=== PATIENT | male | born 1930 | race Caucasian/White ===

== ENCOUNTER 2017-05-15 11:35 | Inpatient (IN) | payer MEDICARE, OTHER ==
[2017-05-15] VITALS (7 sets, daily range): BP systolic 101–130; BP diastolic 49–60; PULSE 75–93; RESP 16–21; TEMP 97.3–98.3; O2SAT 97–99
[~2017-05-15] VITALS: Ht 190.5 cm; Wt 71.5 kg
[~2017-05-15 11:35] MED LIST: AMIT50 PO; APIX5TAB PO; ATOR20TA42 PO; DEMA100T PO; DEXA4TAB PO; KLOR20TA6 PO; LISI-360 PO; METO25CR PO; METO5TAB46 PO; PLAV75TA PO; SENN1TAB11 PO; SLOWTAB PO; TAB-TAB PO; VALT500T PO; VITATAB25 PO
[2017-05-15] MEDS ORDERED: SODIUM CHLORIDE 0.9% FLUSH 10 ML FLUSH IVF PRN (12:00)
--- NOTE | 2017-05-15 12:03 | PD ---
HPI Chief Complaint: Respiratory Distress Time Seen by Provider: 11:41 Travel History International Travel<30 days: No Contact w/Intl Traveler<30days: No Traveled to known affect area: No History of Present Illness HPI 87-year-old male presents to the emergency department via EMS from nursing facility for evaluation of shortness of breath as well as right leg swelling and pain. She states he has had shortness of breath for approximately 3 weeks. He is on torsemide for CHF. He took this this morning and has been urinating since. He states he has had right leg pain and swelling for approximately 2 days. Patient states pain is currently 7/10 to the right leg, nonradiating, aching. Pain is worse with movement. He is currently on Eliquis for atrial fibrillation. Patient denies any fevers or chills. He denies any chest pain. No abdominal pain. No nausea, vomiting, diarrhea. 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 Moderate severity. Patient is on Revlimid for multiple myeloma. PFSH Past Medical History Asthma: Yes Atrial Fibrillation: Yes Cancer: Yes (prostate cancer, MULTIPLE MYELOMA) Cardiac Catheterization: Yes Cardiovascular Problems: Yes High Cholesterol: Yes Chemotherapy: Yes Cerebrovascular Accident: Yes (x 2) Coronary Artery Disease: Yes Diminished Hearing: No Hypertension: Yes Neurologic: Yes Psychiatric: No Respiratory: Yes Radiation Therapy: Yes (2 years ago) Shingles: Yes Past Surgical History Cardiac Surgery: Yes (aortic valve replaced 03/30/13) Coronary Stent: Yes (x2) Eye Surgery: Yes (BILATERAL CATARACT REPAIR) Social History Alcohol Use: Yes (OCCASIONAL) Tobacco Use: No (HX OF) Substance Use: No Allergies-Medications (Allergen,Severity, Reaction): Coded Allergies: levofloxacin (Unverified Allergy, Severe, 12/31/16) chest pain shellfish derived (Unverified Allergy, Severe, Anaphylaxis, 12/31/16) iodine (Unverified Allergy, Unknown, 12/31/16) pt does not know potassium iodide (Unverified Allergy, Unknown, 12/31/16) pt does not know povidone-iodine (Unverified Allergy, Unknown, 12/31/16) pt does not know sodium iodide (Unverified Allergy, Unknown, 12/31/16) pt does not know sodium iodide (Unverified Allergy, Unknown, 12/31/16) pt does not know Reported Meds & Prescriptions Reported Meds & Active Scripts Active Reported Plavix (Clopidogrel Bisulfate) Unknown Strength Tab Unknown Dose PO DAILY Slow-Mag (Magnesium Chloride) 64 Mg Tab 2 Tab PO DAILY Metolazone 5 Mg Tab 5 Mg PO DAILY take one daily as needed when weight gain 4 pounds above baseline Jeri-Colace (Senna/Docusate Sodium) 1 Tab Tab 1 Tab PO HS Lisinopril 10 Mg Tab 10 Mg PO DAILY Vitamin D-1000 (Cholecalciferol) 1,000 Unit Tab 1,000 Unit PO DAILY Demadex (Torsemide) 100 Mg Tab 100 Mg PO BID Dexamethasone 4 Mg Tab 40 Mg PO WEEKLY Elavil 50 Mg Tab (Amitriptyline HCl) 50 Mg Tab 50 Mg PO HS Lipitor (Atorvastatin Calcium) 20 Mg Tab 20 Mg PO HS Eliquis (Apixaban) 5 Mg Tab 5 Mg PO BID Multivitamin (Multivitamins) 1 Tab Tab 1 Tab PO DAILY Valtrex (Valacyclovir HCl) 500 Mg Tab 500 Mg PO DAILY K-Dur (Potassium Chloride) 20 Meq Tabcr 40 Meq PO BID on days when you take metolazone is taken take POTASSSIUM TABLETS 2 FOUR TIMES A DAY Metoprolol Succinate Er (Metoprolol Succinate) 25 Mg Tab 25 Mg PO BID Review of Systems Except as stated in HPI: all other systems reviewed are Neg Physical Exam Narrative GENERAL: Well-nourished, well-developed male patient, afebrile. SKIN: Focused skin assessment warm/dry. HEAD: Normocephalic. Atraumatic EYES: No scleral icterus. No injection or drainage. NECK: Supple, trachea midline. No JVD or lymphadenopathy. CARDIOVASCULAR: Regular rate and rhythm without murmurs, gallops, or rubs. Bilateral pedal pulses 1+. Bilateral radial pulses 2+. RESPIRATORY: Breath sounds equal bilaterally. No accessory muscle use. Lungs sounds are clear to auscultation GASTROINTESTINAL: Abdomen soft, non-tender, nondistended. MUSCULOSKELETAL: No cyanosis. Right lower extremity with 2-3+ edema, erythema to the knee with warmth to palpation. BACK: Nontender without obvious deformity. No CVA tenderness. Data Data Last Documented VS Vital Signs Date Time Temp Pulse Resp B/P (MAP) Pulse Ox O2 Delivery O2 Flow Rate FiO2 05/15/17 12:10 98.3 83 19 130/60 (83) 98 Room Air Orders Orders Complete Blood Count With Diff (05/15/17 11:52) Basic Metabolic Panel (Bmp) (05/15/17 11:52) B-Type Natriuretic Peptide (05/15/17 11:52) Act Partial Throm Time (Ptt) (05/15/17 11:52) Prothrombin Time / Inr (Pt) (05/15/17 11:52) Magnesium (Mg) (05/15/17 11:52) Ckmb (Isoenzyme) Profile (05/15/17 11:52) Troponin I (05/15/17 11:52) Urinalysis - C+S If Indicated (05/15/17 11:52) Blood Culture (05/15/17 11:52) Iv Access Insert/Monitor (05/15/17 11:52) Electrocardiogram (05/15/17 11:52) Ecg Monitoring (05/15/17 11:52) Oximetry (05/15/17 11:52) Oxygen Administration (05/15/17 11:52) Chest, Single Ap (05/15/17 11:52) Us Leg Venous Doppler (05/15/17 11:52) Sodium Chloride 0.9% Flush (Ns Flush) (05/15/17 12:00) Lactic Acid Sepsis Protocol (05/15/17 11:52) Vancomycin Inj (Vancomycin Inj) (05/15/17 13:00) Piperacil-Tazo 3.375 Gm Premix (Zosyn 3. (05/15/17 13:00) Admit Order (Ed Use Only) (05/15/17 14:02) Labs Laboratory Tests Test 05/15/17 12:04 White Blood Count 5.7 TH/MM3 Red Blood Count 2.97 MIL/MM3 Hemoglobin 10.1 GM/DL Hematocrit 32.0 % Mean Corpuscular Volume 107.6 FL Mean Corpuscular Hemoglobin 34.1 PG Mean Corpuscular Hemoglobin Concent 31.7 % Red Cell Distribution Width 20.0 % Platelet Count 164 TH/MM3 Mean Platelet Volume 11.6 FL Neutrophils (%) (Auto) 94.4 % Lymphocytes (%) (Auto) 2.6 % Monocytes (%) (Auto) 2.2 % Eosinophils (%) (Auto) 0.7 % Basophils (%) (Auto) 0.1 % Neutrophils # (Auto) 5.4 TH/MM3 Lymphocytes # (Auto) 0.2 TH/MM3 Monocytes # (Auto) 0.1 TH/MM3 Eosinophils # (Auto) 0.0 TH/MM3 Basophils # (Auto) 0.0 TH/MM3 CBC Comment AUTO DIFF Differential Total Cells Counted 100 Neutrophils % (Manual) 76 % Band Neutrophils % 18 % Lymphocytes % 3 % Monocytes % 2 % Neutrophils # (Manual) 5.4 TH/MM3 Metamyelocytes 1 % Differential Comment FINAL DIFF MANUAL Platelet Estimate NORMAL Platelet Morphology Comment NORMAL Ovalocytes 1+ Prothrombin Time 15.4 SEC Prothromb Time International Ratio 1.5 RATIO Activated Partial Thromboplast Time 27.0 SEC Urine Color LIGHT-YELLOW Urine Turbidity CLEAR Urine pH 5.0 Urine Specific [place] 1.005 Urine Protein NEG mg/dL Urine Glucose (UA) NEG mg/dL Urine Ketones NEG mg/dL Urine Occult Blood NEG Urine Nitrite NEG Urine Bilirubin NEG Urine Urobilinogen LESS THAN 2.0 MG/DL Urine Leukocyte Esterase NEG Urine RBC 1 /hpf Urine WBC LESS THAN 1 /hpf Urine Squamous Epithelial Cells <1 /hpf Microscopic Urinalysis Comment CULT NOT INDICATED Blood Urea Nitrogen 37 MG/DL Creatinine 2.00 MG/DL Random Glucose 88 MG/DL Calcium Level 7.9 MG/DL Magnesium Level 2.2 MG/DL Sodium Level 140 MEQ/L Potassium Level 4.0 MEQ/L Chloride Level 105 MEQ/L Carbon Dioxide Level 25.0 MEQ/L Anion Gap 10 MEQ/L Estimat Glomerular Filtration Rate 32 ML/MIN Lactic Acid Level 3.4 mmol/L Total Creatine Kinase 68 U/L Troponin I 1.02 NG/ML B-Type Natriuretic Peptide 1678 PG/ML [facility] Medical Decision Making Medical Screen Exam Complete: Yes Emergency Medical Condition: Yes Medical Record Reviewed: Yes Interpretation(s) Last Impressions Lower Extremity Ultrasound 05/15/17 115 Signed Impressions: Service Date/Time: April 11:59 - CONCLUSION: No evidence of DVT. Fredi Pozo MD Chest X-Ray 05/15/17 1152 Signed Impressions: Service Date/Time: April 12:46 - CONCLUSION: 1. Cardiomegaly without evidence of acute cardiopulmonary process. 2. Prostatic aortic valve. Cortez Watson MD Differential Diagnosis cellulitis versus DVT versus CHF exacerbation versus pneumonia versus COPD versus PE versus sepsis Narrative Course 87-year-old male presents to the emergency department complaining of right leg pain and swelling for 2 days as well as shortness of breath for 3 weeks. EKG, CBC, BMP, BNP, magnesium, CK, troponin, lactic acid, PTT, PT/INR, UA, blood cultures 2 are ordered and pending. Chest x-ray is ordered and pending. Venous Doppler ultrasound of the right lower extremity is ordered and pending. EKG shows atrial fibrillation, heart rate 98 with right bundle branch block. CBC shows hemoglobin 10.1, hematocrit 32.0, band neutrophils 18. BMP shows BUN 37, creatinine 2.0. BNP is 1678. Magnesium is 2.2. CK is 68. Troponin is 1.02. Lactic acid is 3.4. Coags show no acute abnormality. UA is negative. Chest x-ray shows cardiomegaly without evidence of acute cardiopulmonary process , prosthetic aortic valve. US shows no evidence of DVT. Patient is started on vancomycin 1 g IV, Zosyn 3.375 g IV for cellulitis. Hospitalist was paged for admission. Dr. Menjivar accepted admission. Diagnosis Primary Impression: Cellulitis, leg Qualified Codes: L03.115 - Cellulitis of right lower limb Additional Impressions: Elevated troponin Dyspnea Qualified Codes: R06.02 - Shortness of breath Admitting Information Admitting Physician Requests: Admit Jessica Rangel May 15, 2017 12:02
[2017-05-15 12:24] LABS: AUTOMATED NEUTROPHIL # 5.4 TH/MM3 (1.8-7.7); BASOPHIL % 0.1 % (0.0-2.0); EOSINOPHIL % 0.7 % (0.0-4.0); HEMOGLOBIN 10.1 GM/DL (13.0-17.0); LYMPH % 2.6 % (9.0-44.0); LYMPHOCYTE # 0.2 TH/MM3 (1.0-4.8); MEAN CELL VOLUME 107.6 FL (80.0-100.0); MEAN CORPUSCULAR HEMOGLOBIN 34.1 PG (27.0-34.0); MEAN CORPUSCULAR HGB CONC 31.7 % (32.0-36.0); MEAN PLATELET VOLUME 11.6 FL (7.0-11.0); MONO % 2.2 % (0.0-8.0); MONOCYTE # 0.1 TH/MM3 (0-0.9); NEUT % 94.4 % (16.0-70.0); PLATELET COUNT 164 TH/MM3 (150-450); RED BLOOD COUNT 2.97 MIL/MM3 (4.50-5.90); WHITE BLOOD COUNT 5.7 TH/MM3 (4.0-11.0)
[2017-05-15 12:30] LABS: BILIRUBIN, URINE NEG (NEG); BLOOD, URINE NEG (NEG); GLUCOSE,URINE NEG (NEG); KETONE, URINE NEG (NEG); NITRITE,URINE NEG (NEG); SQUAMOUS EPITHELIAL CELL URINE <1 /hpf (0-5); URINE COLOR LIGHT-YELLOW (YELLW/STRAW); URINE LEUKOCYTE ESTERASE NEG (NEG)
[2017-05-15 12:34] LABS: INTERNATIONAL NORMALIZED RATIO 1.5 RATIO; PROTHROMBIN TIME - PATIENT 15.4 SEC (9.8-11.6)
[2017-05-15 12:38] LABS: CALCIUM 7.9 MG/DL (8.5-10.1); MAGNESIUM 2.2 MG/DL (1.5-2.5)
--- NOTE | 2017-05-15 12:39 | RADRPT ---
EXAM DATE/TIME: 05/15/2017 11:59 [facility] COMPARISON: No previous studies available for comparison. INDICATIONS : Right leg swelling. MEDICAL HISTORY : Hypercholesterolemia. Carcinoma, prostate. CVA x2. Coronary artery disease. Afib. HTN. Asthma. M ultiple myeloma. Shingles. SURGICAL HISTORY : Coronary artery stent. Bilateral cataract repair. Aortic valve replacement. Cardiac cath. Chemoth erapy. Radiation therapy. Blood transfusions. ENCOUNTER: Initial ACUITY: 1 day PAIN SCORE: 5/10 LOCATION: Right leg. TECHNIQUE: Venous ultrasound of the leg was performed from the inguinal ligament to the proximal calf. Real-clotilde e, color Doppler and spectral tracing, compression and augmentation techniques were used. FINDINGS: There is normal compressibility of the deep venous system from the inguinal region to the proximal ca lf. No echogenic clot is seen in the lumen of the common femoral, femoral, popliteal, and posterior tibial veins. There is a normal response of the venous system to proximal and distal augmentation an d respiration. CONCLUSION: No evidence of DVT. Fredi Pozo MD on May 15, 2017 at 12:36 Board Certified Radiologist. This report was verified electronically.
[2017-05-15 12:44] LABS: LACTIC ACID SEPSIS PROTOCOL 3.4 mmol/L (0.4-2.0)
[2017-05-15 12:49] LABS: TROPONIN I 1.02 NG/ML (0.02-0.05)
[2017-05-15] MEDS ORDERED: VANCOMYCIN INJ 1,000 MG in SODIUM CHLOR 0.9% 250 ML INJ 250 ML IV ONE (13:00)
[2017-05-15] MEDS ORDERED: PIPERACIL-TAZO 3.375 GM PREMIX 50 ML IV ONE (13:00)
[2017-05-15 13:09] LABS: BANDS 18 % (0-6); LYMPHOCYTES 3 % (9-44); METAMYELOCYTES 1 % (0-1); MONOCYTES 2 % (0-8); NEUTROPHIL # MANUAL DIFF 5.4 TH/MM3 (1.8-7.7); OVALOCYTES 1+ (NORMAL); POLYS (SEG NEUTROPHILS) 76 % (16-70)
--- NOTE | 2017-05-15 13:18 | RADRPT ---
EXAM DATE/TIME: 05/15/2017 12:46 [facility] COMPARISON: No previous studies available for comparison. INDICATIONS : Bilateral lower extremity edema, short of breath, back pain MEDICAL HISTORY : None. SURGICAL HISTORY : None. ENCOUNTER: Initial ACUITY: 3 days PAIN SCORE: Non-responsive. LOCATION: Bilateral chest FINDINGS: The heart is moderately to markedly enlarged. Lungs are free of significant congestion or acute airspace disease. There are no pleural effusions. Prosthetic aortic valve is noted. CONCLUSION: 1. Cardiomegaly without evidence of acute cardiopulmonary process. 2. Prostatic aortic valve. Cortez Watson MD on May 15, 2017 at 13:15 Board Certified Radiologist. This report was verified electronically.
--- NOTE | 2017-05-15 14:17 | PD ---
Physical Exam Narrative GENERAL: Well-nourished, well-developed patient. SKIN: Warm and dry. HEAD: Normocephalic and atraumatic. EYES: No injection or drainage. ENT: No nasal drainage noted. NECK: Supple, trachea midline. CARDIOVASCULAR: Regular rate and rhythm RESPIRATORY: No increased effort. No accessory muscle use. EXTREMITIES: Edema noted to bilateral lower extremities NEUROLOGICAL: Awake. Moves extremities and sensory grossly within normal limits. Clear speech. Data Data Last Documented VS Vital Signs Date Time Temp Pulse Resp B/P (MAP) Pulse Ox O2 Delivery O2 Flow Rate FiO2 05/15/17 12:10 98.3 83 19 130/60 (83) 98 Room Air Orders Orders Complete Blood Count With Diff (05/15/17 11:52) Basic Metabolic Panel (Bmp) (05/15/17 11:52) B-Type Natriuretic Peptide (05/15/17 11:52) Act Partial Throm Time (Ptt) (05/15/17 11:52) Prothrombin Time / Inr (Pt) (05/15/17 11:52) Magnesium (Mg) (05/15/17 11:52) Ckmb (Isoenzyme) Profile (05/15/17 11:52) Troponin I (05/15/17 11:52) Urinalysis - C+S If Indicated (05/15/17 11:52) Blood Culture (05/15/17 11:52) Iv Access Insert/Monitor (05/15/17 11:52) Electrocardiogram (05/15/17 11:52) Ecg Monitoring (05/15/17 11:52) Oximetry (05/15/17 11:52) Oxygen Administration (05/15/17 11:52) Chest, Single Ap (05/15/17 11:52) Us Leg Venous Doppler (05/15/17 11:52) Sodium Chloride 0.9% Flush (Ns Flush) (05/15/17 12:00) Lactic Acid Sepsis Protocol (05/15/17 11:52) Vancomycin Inj (Vancomycin Inj) (05/15/17 13:00) Piperacil-Tazo 3.375 Gm Premix (Zosyn 3. (05/15/17 13:00) Admit Order (Ed Use Only) (05/15/17 14:02) Labs Laboratory Tests Test 05/15/17 12:04 White Blood Count 5.7 TH/MM3 Red Blood Count 2.97 MIL/MM3 Hemoglobin 10.1 GM/DL Hematocrit 32.0 % Mean Corpuscular Volume 107.6 FL Mean Corpuscular Hemoglobin 34.1 PG Mean Corpuscular Hemoglobin Concent 31.7 % Red Cell Distribution Width 20.0 % Platelet Count 164 TH/MM3 Mean Platelet Volume 11.6 FL Neutrophils (%) (Auto) 94.4 % Lymphocytes (%) (Auto) 2.6 % Monocytes (%) (Auto) 2.2 % Eosinophils (%) (Auto) 0.7 % Basophils (%) (Auto) 0.1 % Neutrophils # (Auto) 5.4 TH/MM3 Lymphocytes # (Auto) 0.2 TH/MM3 Monocytes # (Auto) 0.1 TH/MM3 Eosinophils # (Auto) 0.0 TH/MM3 Basophils # (Auto) 0.0 TH/MM3 CBC Comment AUTO DIFF Differential Total Cells Counted 100 Neutrophils % (Manual) 76 % Band Neutrophils % 18 % Lymphocytes % 3 % Monocytes % 2 % Neutrophils # (Manual) 5.4 TH/MM3 Metamyelocytes 1 % Differential Comment FINAL DIFF MANUAL Platelet Estimate NORMAL Platelet Morphology Comment NORMAL Ovalocytes 1+ Prothrombin Time 15.4 SEC Prothromb Time International Ratio 1.5 RATIO Activated Partial Thromboplast Time 27.0 SEC Urine Color LIGHT-YELLOW Urine Turbidity CLEAR Urine pH 5.0 Urine Specific [place] 1.005 Urine Protein NEG mg/dL Urine Glucose (UA) NEG mg/dL Urine Ketones NEG mg/dL Urine Occult Blood NEG Urine Nitrite NEG Urine Bilirubin NEG Urine Urobilinogen LESS THAN 2.0 MG/DL Urine Leukocyte Esterase NEG Urine RBC 1 /hpf Urine WBC LESS THAN 1 /hpf Urine Squamous Epithelial Cells <1 /hpf Microscopic Urinalysis Comment CULT NOT INDICATED Blood Urea Nitrogen 37 MG/DL Creatinine 2.00 MG/DL Random Glucose 88 MG/DL Calcium Level 7.9 MG/DL Magnesium Level 2.2 MG/DL Sodium Level 140 MEQ/L Potassium Level 4.0 MEQ/L Chloride Level 105 MEQ/L Carbon Dioxide Level 25.0 MEQ/L Anion Gap 10 MEQ/L Estimat Glomerular Filtration Rate 32 ML/MIN Lactic Acid Level 3.4 mmol/L Total Creatine Kinase 68 U/L Troponin I 1.02 NG/ML B-Type Natriuretic Peptide 1678 PG/ML MDM Supervised Visit with MARYANNE: Yes Interpretation(s) CBC & BMP Diagram 05/15/17 12:04 Calcium Level 7.9 L, Magnesium Level 2.2 Last 24 hours Impressions Lower Extremity Ultrasound 05/15/17 1152 Signed Impressions: Service Date/Time: April 11:59 - CONCLUSION: No evidence of DVT. Fredi Pozo MD Chest X-Ray 05/15/17 1152 Signed Impressions: Service Date/Time: April 12:46 - CONCLUSION: 1. Cardiomegaly without evidence of acute cardiopulmonary process. 2. Prostatic aortic valve. Cortez Watson MD Narrative Course I, Dr. ramírez, have reviewed the advance practice practitioner's documentation and am in agreement, met with the patient face to face, made the diagnosis, and the medical decision making was done by me. *My assessment and Findings: 87 y/o male presents with pain to his legs and shortness of breath. Workup reveals non-STEMI. Patient also has concurrent cellulitis. Patient was given antibiotic coverage for this. Patient will be admitted to medicine for further care. Diagnosis Primary Impression: Cellulitis, leg Qualified Codes: L03.115 - Cellulitis of right lower limb Additional Impressions: Dyspnea Qualified Codes: R06.02 - Shortness of breath Elevated troponin Admitting Information Admitting Physician Requests: Admit Alice Ramírez MD May 15, 2017 14:17
[2017-05-15] MEDS ORDERED: ACETAMINOPHEN 325 MG TAB PO PRN (14:30)
[2017-05-15] MEDS ORDERED: SENNOSIDES 8.6 MG TAB PO PRN (14:30)
[2017-05-15] MEDS ORDERED: ONDANSETRON HCL 4 MG/2 ML VIAL IVP PRN (14:30)
[2017-05-15] MEDS ORDERED: SODIUM CHLORIDE 0.9% FLUSH 10 ML FLUSH IV FLUSH PRN (14:30)
[2017-05-15] MEDS ORDERED: BISACODYL 10 MG SUPP RECTAL PRN (14:30)
[2017-05-15] MEDS ORDERED: LACTULOSE SYRUP 20 GM/30 ML CUP PO PRN (14:30)
[2017-05-15] MEDS ORDERED: MAGNESIUM HYDROXIDE SUSP 30 ML CUP PO PRN (14:30)
[2017-05-15] MEDS ORDERED: NALOXONE HCL 0.4 MG/ML AMP IV PUSH PRN (14:30)
--- NOTE | 2017-05-15 14:35 | HHI.HP ---
[facility] Shawn Linares MD Admission Diagnosis right leg cellulitis, elevated troponin, dyspnea Diagnoses: Chief Complaint: Shortness of breathing, lower extremity edema and pain Travel History International Travel<30 Days: No Contact w/Intl Traveler <30 Da: No Traveled to Known Affected Are: No History of Present Illness This is an 87-year-old male past medical history of bovine aortic valve replacement, atrial fibrillation on chronic anticoagulation, coronary artery disease status post stent placement and multiple myeloma who presented with shortness of breathing and lower extremity pain. Patient is a poor historian he stated that his shortness of breathing has been for many years but has worsened the past 3 weeks. He stated that it intermittently gets better and could not really tell me if today was a bad day. Denied any chest pain, palpitation, lightheadedness or dizziness. He also stated that he has lower extremity edema this been present for a few weeks. Patient stated that he fell in the senior living in which he started to have back pain and lower extremity pain. Pain is constant and worse with movement. Patient is asking for pain medication. He denies any lower extremity weakness or fecal urinary continence. Patient remains afebrile. Patient stated that he sees Dr. Boris Lopez. All other review system reviewed and negative. Past Family Social History Past Medical History Bovine aortic valve replacement Hypertension Coronary disease History CVA H fibrillation Chronic anticoagulation History of CHF Multiple myeloma Past Surgical History History air valve replacement Stent placement Reported Medications Reported Meds & Active Scripts Active Reported Plavix (Clopidogrel Bisulfate) Unknown Strength Tab Unknown Dose PO DAILY Slow-Mag (Magnesium Chloride) 64 Mg Tab 2 Tab PO DAILY Metolazone 5 Mg Tab 5 Mg PO DAILY take one daily as needed when weight gain 4 pounds above baseline Jeri-Colace (Senna/Docusate Sodium) 1 Tab Tab 1 Tab PO HS Lisinopril 10 Mg Tab 10 Mg PO DAILY Vitamin D-1000 (Cholecalciferol) 1,000 Unit Tab 1,000 Unit PO DAILY Demadex (Torsemide) 100 Mg Tab 100 Mg PO BID Dexamethasone 4 Mg Tab 40 Mg PO WEEKLY Elavil 50 Mg Tab (Amitriptyline HCl) 50 Mg Tab 50 Mg PO HS Lipitor (Atorvastatin Calcium) 20 Mg Tab 20 Mg PO HS Eliquis (Apixaban) 5 Mg Tab 5 Mg PO BID Multivitamin (Multivitamins) 1 Tab Tab 1 Tab PO DAILY Valtrex (Valacyclovir HCl) 500 Mg Tab 500 Mg PO DAILY K-Dur (Potassium Chloride) 20 Meq Tabcr 40 Meq PO BID on days when you take metolazone is taken take POTASSSIUM TABLETS 2 FOUR TIMES A DAY Metoprolol Succinate Er (Metoprolol Succinate) 25 Mg Tab 25 Mg PO BID Allergies: Coded Allergies: levofloxacin (Unverified Allergy, Severe, 12/31/16) chest pain shellfish derived (Unverified Allergy, Severe, Anaphylaxis, 12/31/16) iodine (Unverified Allergy, Unknown, 12/31/16) pt does not know potassium iodide (Unverified Allergy, Unknown, 12/31/16) pt does not know povidone-iodine (Unverified Allergy, Unknown, 12/31/16) pt does not know sodium iodide (Unverified Allergy, Unknown, 12/31/16) pt does not know sodium iodide (Unverified Allergy, Unknown, 12/31/16) pt does not know Active Ordered Medications Current Medications Sodium Chloride (NS Flush) 2 ml UNSCH PRN IVF FLUSH AFTER USING IV ACCESS; Start 05/15/17 at 12:00 Vancomycin HCl 1000 mg/Sodium Chloride 250 ml @ 250 mls/hr ONCE ONCE IV ; Start 05/15/17 at 13:00; Stop 05/15/17 at 13:59; Status DC Piperacillin Sod/ Tazobactam Sod 50 ml @ 100 mls/hr ONCE ONCE IV Last administered on 05/15/17t 13:33; Start 05/15/17 at 13:00; Stop 05/15/17 at 13 :29; Status DC Family History mother from stroke. Social History reside at [facility]. Occasionally drinks wine at night. Denies any tobacco or illicit drug use. Physical Exam Vital Signs Vital Signs Date Time Temp Pulse Resp B/P (MAP) Pulse Ox O2 Delivery O2 Flow Rate FiO2 05/15/17 12:10 98.3 83 19 130/60 (83) 98 Room Air 05/15/17 11:50 98 Room Air Physical Exam GENERAL: This is a well-nourished, well-developed patient, in no apparent distress. SKIN: Bilateral lower extremity with erythema more on left. Left extends up to the medial thigh. HEAD: Atraumatic. Normocephalic. No temporal or scalp tenderness. EYES: Pupils equal round and reactive. Extraocular motions intact. No scleral icterus. No injection or drainage. ENT: Nose without bleeding, purulent drainage or septal hematoma. Throat without erythema, tonsillar hypertrophy or exudate. Uvula midline. Airway patent. NECK: Trachea midline. No JVD or lymphadenopathy. Supple, nontender, no meningeal signs. CARDIOVASCULAR: Regular rate and rhythm without murmurs, gallops, or rubs. RESPIRATORY: Clear to auscultation. Breath sounds equal bilaterally. No wheezes , rales, or rhonchi. GASTROINTESTINAL: Abdomen soft, non-tender, nondistended. No hepato-splenomegaly , or palpable masses. No guarding. MUSCULOSKELETAL: Extremities without clubbing, cyanosis, or edema. No joint tenderness, effusion, or edema noted. No calf tenderness. Negative Homans sign bilaterally. NEUROLOGICAL: Awake and alert. Cranial nerves II through XII intact. Motor and sensory grossly within normal limits. Five out of 5 muscle strength in all muscle groups. Normal speech. Laboratory Laboratory Tests Test 05/15/17 12:04 White Blood Count 5.7 Red Blood Count 2.97 Hemoglobin 10.1 Hematocrit 32.0 Mean Corpuscular Volume 107.6 Mean Corpuscular Hemoglobin 34.1 Mean Corpuscular Hemoglobin Concent 31.7 Red Cell Distribution Width 20.0 Platelet Count 164 Mean Platelet Volume 11.6 Neutrophils (%) (Auto) 94.4 Lymphocytes (%) (Auto) 2.6 Monocytes (%) (Auto) 2.2 Eosinophils (%) (Auto) 0.7 Basophils (%) (Auto) 0.1 Neutrophils # (Auto) 5.4 Lymphocytes # (Auto) 0.2 Monocytes # (Auto) 0.1 Eosinophils # (Auto) 0.0 Basophils # (Auto) 0.0 CBC Comment AUTO DIFF Differential Total Cells Counted 100 Neutrophils % (Manual) 76 Band Neutrophils % 18 Lymphocytes % 3 Monocytes % 2 Neutrophils # (Manual) 5.4 Metamyelocytes 1 Differential Comment FINAL DIFF MANUAL Platelet Estimate NORMAL Platelet Morphology Comment NORMAL Ovalocytes 1+ Prothrombin Time 15.4 Prothromb Time International Ratio 1.5 Activated Partial Thromboplast Time 27.0 Urine Color LIGHT-YELLOW Urine Turbidity CLEAR Urine pH 5.0 Urine Specific [place] 1.005 Urine Protein NEG Urine Glucose (UA) NEG Urine Ketones NEG Urine Occult Blood NEG Urine Nitrite NEG Urine Bilirubin NEG Urine Urobilinogen LESS THAN 2.0 Urine Leukocyte Esterase NEG Urine RBC 1 Urine WBC LESS THAN 1 Urine Squamous Epithelial Cells <1 Microscopic Urinalysis Comment CULT NOT INDICATED Blood Urea Nitrogen 37 Creatinine 2.00 Random Glucose 88 Calcium Level 7.9 Magnesium Level 2.2 Sodium Level 140 Potassium Level 4.0 Chloride Level 105 Carbon Dioxide Level 25.0 Anion Gap 10 Estimat Glomerular Filtration Rate 32 Lactic Acid Level 3.4 Total Creatine Kinase 68 Troponin I 1.02 B-Type Natriuretic Peptide 1678 Date/Time Source Procedure Growth Status 05/15/17 12:04 Blood Peripheral Aerobic Blood Culture Pending Received 05/15/17 12:04 Blood Peripheral Anaerobic Blood Culture Pending Received Result Diagram: 05/15/17 1204 05/15/17 1204 Imaging Last Impressions Lower Extremity Ultrasound 05/15/17 1152 Signed Impressions: Service Date/Time: April 11:59 - CONCLUSION: No evidence of DVT. Fredi Pozo MD Chest X-Ray 05/15/17 1152 Signed Impressions: Service Date/Time: April 12:46 - CONCLUSION: 1. Cardiomegaly without evidence of acute cardiopulmonary process. 2. Prostatic aortic valve. MD Adam Royal VTE Risk Assessment Caprini VTE Risk Assessment: Mod/High Risk (score >= 2) Caprini Risk Assessment Model Point Value = 1 Point Value = 2 Point Value = 3 Point Value = 5 Age 41-60 Minor surgery BMI > 25 kg/m2 Swollen legs Varicose veins or History of unexplained or recurrent spontaneous Oral contraceptives or hormone replacement Sepsis (< 1 month) Serious lung disease, including pneumonia (< 1 month) Abnormal pulmonary function Acute myocardial infarction Congestive heart failure (< 1 month) History of inflammatory bowel disease Medical patient at bed rest Age 61-74 Arthroscopic surgery Major open surgery (> 45 min) Laparoscopic surgery (> 45 min) Malignancy Confined to bed (> 72 hours) Immobilizing plaster cast Central venous access Age >= 75 History of VTE Family history of VTE Factor V Leiden Prothrombin [id number] Lupus anticoagulant Anticardiolipin antibodies Elevated serum homocysteine Heparin-induced thrombocytopenia Other congenital or acquired thrombophilia Stroke (< 1 month) Elective arthroplasty Hip, pelvis, or leg fracture Acute spinal cord injury (< 1 month) Prophylaxis Regimen Total Risk Factor Score Risk Level Prophylaxis Regimen 0-1 Low Early ambulation 2 Moderate Order ONE of the following: *Sequential Compression Device (SCD) *Heparin 5000 units SQ BID 3-4 Higher Order ONE of the following medications: *Heparin 5000 units SQ TID *Enoxaparin/Lovenox 40 mg SQ daily (WT < 150 kg, CrCl > 30 mL/min) *Enoxaparin/Lovenox 30 mg SQ daily (WT < 150 kg, CrCl > 10-29 mL/min) *Enoxaparin/Lovenox 30 mg SQ BID (WT < 150 kg, CrCl > 30 mL/min) AND/OR *Sequential Compression Device (SCD) 5 or more Highest Order ONE of the following medications: *Heparin 5000 units SQ TID (Preferred with Epidurals) *Enoxaparin/Lovenox 40 mg SQ daily (WT < 150 kg, CrCl > 30 mL/min) *Enoxaparin/Lovenox 30 mg SQ daily (WT < 150 kg, CrCl > 10-29 mL/min) *Enoxaparin/Lovenox 30 mg SQ BID (WT < 150 kg, CrCl > 30 mL/min) AND *Sequential Compression Device (SCD) Assessment and Plan Assessment and Plan This is a 87-year-old male with multiple medical conditions complaining of pain after falling in the rehabilitation center and shortness of breathing Lower extremity cellulitis with changes consistent with stasis secondary to edema -Patient was given vancomycin and Zosyn the ED. Will start Rocephin. -Continue monitor clinically. Dyspnea -Acute on chronic. Patient is not hypoxic. -Chest x-ray is negative for any acute process. BNP 1678. Last BMP on 09/20/13 1223. Positive for lower extremity edema. Troponin elevated at 1.01 but denies any chest pain. -On torsemide will restart home medication. Patient has good urine output. -Strict ins and outs. Will get an echo. -Continue monitor clinically. Lower extremity and lower back pain -Exacerbated by muscle spasm. Will give a muscle relaxant. Will try tramadol and give a Lidoderm patch. Elevated troponin -Only symptoms are his dyspnea and lower extremity edema. Dyspnea seems to be more chronic and intermittently acute. -At the moment he does not have any chest pain. -Will get an echo. Consult his vp product, Dr. Lopez. Continue to trend cardiac enzymes. Monitor over telemetry. -Resume home medication. Renal sufficiency -There is no recent baseline. Last creatinine done on 10/17/13 1.11. -This may be his baseline. Order placed for nurse to obtain last labs from his PCP or at the rehabilitation center for comparison. -Strict ins and outs. Avoid nephrotoxins. Continue to monitor creatinine. History CVA, age fibrillation, chronic elevation, coronary disease as was the placement, history of CHF, multiple myeloma -Order placed for nurse to update medication list stat and to call once this is completed. Once med list is updated will restart home medication. DVT prophylaxis -Patient on Eliquis. Code Status Full code Discussed Condition With patient Physician Certification 2 Midnight Certification Type: Admission for Inpatient Services Order for Inpatient Services The services are ordered in accordance with Medicare regulations or non- Medicare payer requirements, as applicable. In the case of services not specified as inpatient-only, they are appropriately provided as inpatient services in accordance with the 2-midnight benchmark. Estimated LOS (days): 3 3 days is the estimated time the patient will need to remain in the hospital, assuming treatment plan goals are met and no additional complications. Post-Hospital Plan: [facility] Christina Menjivar MD May 15, 2017 14:35
[2017-05-15] MEDS ORDERED: cefTRIAXone INJ 1,000 MG in SODIUM CHLORIDE 0.9% INJ 100 ML IV SCH (15:00)
[2017-05-15] MEDS: METHOCARBAMOL 500 MG TAB PO SCH ×2 (17:02→21:56)
[2017-05-15] MEDS: LIDOCAINE HCL 5% PATCH T-DERMAL SCH (19:26)
[2017-05-15 20:54] LABS: TROPONIN I 1.2 NG/ML (0.02-0.05)
[2017-05-15] MEDS ORDERED: APIXABAN 5 MG TABLET PO SCH (21:00)
[2017-05-15] MEDS ORDERED: HEPARIN-D5W 25,000 U/250 ML 250 ML IV PRN (21:30)
[2017-05-15] MEDS: DOCUSATE SODIUM 50 MG/SENNA 8.6 MG TAB PO SCH (21:56)
[2017-05-15] MEDS: traMADol/ACETAMINOPHEN 37.5/325 1 TAB PO PRN (21:56)
[2017-05-15] MEDS: ATORVASTATIN 20 MG TAB PO SCH (21:56)
[2017-05-15] MEDS: SODIUM CHLORIDE 0.9% FLUSH 10 ML FLUSH IV FLUSH SCH (21:57)
[2017-05-15] MEDS: AMITRIPTYLINE HCL 50 MG TAB PO SCH (21:57)
[2017-05-15] MEDS: TORSEMIDE 20 MG TAB PO SCH (22:09)
[2017-05-15 22:14] LABS: HEMATOCRIT 29.9 % (39.0-51.0); HEMOGLOBIN 9.5 GM/DL (13.0-17.0); MEAN CELL VOLUME 106.6 FL (80.0-100.0); MEAN CORPUSCULAR HEMOGLOBIN 33.7 PG (27.0-34.0); MEAN CORPUSCULAR HGB CONC 31.6 % (32.0-36.0); MEAN PLATELET VOLUME 10.8 FL (7.0-11.0); PLATELET COUNT 119 TH/MM3 (150-450); RED BLOOD COUNT 2.81 MIL/MM3 (4.50-5.90); RED CELL DISTRIBUTION WIDTH 20.2 % (11.6-17.2); WHITE BLOOD COUNT 5.7 TH/MM3 (4.0-11.0)
[2017-05-15 22:28] LABS: INTERNATIONAL NORMALIZED RATIO 1.7 RATIO; PROTHROMBIN TIME - PATIENT 16.7 SEC (9.8-11.6)
[2017-05-15 22:33] LABS: LACTIC ACID SEPSIS PROTOCOL 2.2 mmol/L (0.4-2.0)
--- NOTE | 2017-05-15 23:05 | MB ---
cc: ROBERTO SIERRA DO DATE OF CONSULTATION 05/15/17 REASON FOR CONSULTATION Elevated troponin, shortness of breath. HISTORY OF PRESENT ILLNESS Azael Newton is a pleasant 87-year-old male who sees my partner, Dr. Lopez. in the office and presented to [facility] emergency room due to lower extremity pain, erythema and shortness of breath. Overall, the patient is a poor historian, but essentially states that he has been short of breath for a number of years and this may have been somewhat worse over the past few weeks. He denies any chest pain with these episodes, just that his shortness of breath may have been increased. He has also noticed that his right lower extremity has been edematous and erythematous for the past few weeks. He states that he takes his Lasix and that his right lower extremity still has been swollen. It has been warm to touch and because of all of this he came to the emergency room. PAST MEDICAL HISTORY 1. Hypertension 2. Coronary artery disease. 4. History of CVA 6. History of atrial fibrillation 7. History of congestive heart failure. 8. Multiple myeloma. 9. Pulmonary hypertension. PAST SURGICAL HISTORY 1. PCI LAD (January 20, 2013) with two Vision bare metal stents (2.75 x 12, 2.75 x 8). 2. Cataract surgery. 3. TAVR (March 30, 2013) with a 26 mm Zladivar valve. ALLERGIES IODINE LEVOFLOXACIN SHELLFISH MEDICATIONS 1. Amitriptyline 50 mg every night 2. Eliquis 5 mg b.i.d. 3. Lipitor 20 mg every night 4. Plavix 75 mg daily 5. Dexamethasone 40 mg weekly. 6. Lisinopril 10 mg daily 7. Slow-Mag 2 tablets daily 8. Metolazone 5 mg daily as needed for weight gain 4 pounds above baseline 9. Toprol XL 25 mg b.i.d. 10. K-Dur 40 mEq b.i.d. on days when taking Metolazone 11. Demadex 100 mg b.i.d. 12. Valtrex 500 mg daily. FAMILY HISTORY Denies premature coronary artery disease or sudden cardiac within the family. SOCIAL HISTORY The patient currently resides at a SNF. He occasionally drinks wine at night. Denies tobacco or drug abuse. REVIEW OF SYSTEMS 14-systems were reviewed including osteopathic. Pertinent positives and negatives above otherwise negative. PHYSICAL EXAMINATION VITAL SIGNS: Temperature 98.3, heart rate 83, blood pressure 130/60, respirations 19, pulse ox 99% on room air. GENERAL: The patient appears well in no acute distress, alert and awake. HEENT: Extraocular muscles intact. Mucous membranes moist. NECK: Supple. No JVD at 45 degrees. No carotid bruits heard bilaterally. Carotid upstroke is brisk in nature. HEART: Irregularly irregular. Positive first and second heart sounds with a 2/6 holo diastolic rumble to the apex. LUNGS: Decreased breath sounds at bilateral bases but no overt wheezes, rales or rhonchi. ABDOMEN: Soft, nontender, nondistended, no organomegaly noted. EXTREMITIES: No clubbing or cyanosis. Right lower extremity is swollen, erythematous and warm to touch. NEUROLOGIC: Neurologically no focal deficits. SKIN: Warm, dry and intact. OSTEOPATHIC: No kyphoscoliosis, lordosis or paraspinal tender points. LABORATORY FINDINGS Hemoglobin 10.1, hematocrit 32.0, platelets 164. Potassium 4.0, BUN 37, creatinine 2.0, lactic acid 3.4, troponin 1.02. BNP 1678. CARDIOLOGY STUDIES Electrocardiogram (May 15, 2017 at 12:33) atrial fibrillation, right bundle branch block, left anterior fascicular block, possible old septal myocardial infarction. IMPRESSION 1. Lower extremity cellulitis 2. Lactic acidosis 3. Chronic dyspnea. 4. Mildly elevated troponin. 5. Lactic acidosis 6. History of CVA. 7. History of atrial fibrillation 8. History of coronary artery disease. 9. History of TAVR 10. History of multiple myeloma 11. History of pulmonary hypertension 12. Acute kidney injury. RECOMMENDATIONS 1. Mr. Newton presented with a multitude of symptoms but most specifically cellulitis with a lactic acidosis. 2. He does have a mildly elevated troponin and this may be type 2 due to his overall illness with lactic acidosis. Currently, he has no chest pain and shows no signs of acute coronary syndrome. 3. He does have some mild shortness of breath which overall may be chronic in nature. His overall chest x-ray does not show overt heart failure at this time. 4. We will check an echo to look at his overall left ventricular function, cardiac structure and possible valvopathies. 5. Overall, apparently the patient has decompensated over the past few years and I do not believe ischemic evaluation or intervention at this time would be helpful. 6. Case was discussed briefly with Dr. Lopez and one of us will follow up with him tomorrow for further management. Thank you for allowing me to see Azael Newton. If there are any questions, please do not hesitate to call. Roberto Sierra DO VGP/SA /9:53 PM /10:11 PM
[2017-05-16] VITALS (10 sets, daily range): BP systolic 103–129; BP diastolic 49–76; PULSE 69–90; RESP 16–20; TEMP 97–98.6; O2SAT 81–98
[2017-05-16 01:47] LABS: BICARBONATE 26.3 MEQ/L (21.0-32.0); CALCIUM 7.5 MG/DL (8.5-10.1); CREATININE 1.68 MG/DL (0.60-1.30)
[2017-05-16 01:54] LABS: TROPONIN I 1.23 NG/ML (0.02-0.05)
[2017-05-16] MEDS: METHOCARBAMOL 500 MG TAB PO SCH ×3 (04:11→21:53)
[2017-05-16 06:33] LABS: HEMATOCRIT 29.3 % (39.0-51.0); HEMOGLOBIN 9.3 GM/DL (13.0-17.0); MEAN CELL VOLUME 107.4 FL (80.0-100.0); MEAN CORPUSCULAR HEMOGLOBIN 34.1 PG (27.0-34.0); MEAN CORPUSCULAR HGB CONC 31.8 % (32.0-36.0); MEAN PLATELET VOLUME 11.8 FL (7.0-11.0); PLATELET COUNT 114 TH/MM3 (150-450); RED BLOOD COUNT 2.73 MIL/MM3 (4.50-5.90); RED CELL DISTRIBUTION WIDTH 20.3 % (11.6-17.2); WHITE BLOOD COUNT 5.3 TH/MM3 (4.0-11.0)
[2017-05-16] MEDS: METOLAZONE 5 MG TAB PO SCH (09:00)
[2017-05-16] MEDS: TORSEMIDE 20 MG TAB PO SCH ×2 (09:30→17:54)
[2017-05-16] MEDS: LIDOCAINE HCL 5% PATCH T-DERMAL SCH (09:30)
[2017-05-16] MEDS: SODIUM CHLORIDE 0.9% FLUSH 10 ML FLUSH IV FLUSH SCH ×2 (09:31→21:54)
[2017-05-16] MEDS: DOCUSATE SODIUM 50 MG/SENNA 8.6 MG TAB PO SCH ×2 (09:31→21:53)
[2017-05-16] MEDS: valACYclovir HCL 500 MG TAB PO SCH (09:31)
[2017-05-16] MEDS ORDERED: VANCOMYCIN INJ 1,000 MG in SODIUM CHLOR 0.9% 250 ML INJ 250 ML IV SCH (10:00)
[2017-05-16] MEDS ORDERED: Vancomycin Consult Pharmacy 1 EA OTHER SCH (10:00)
[2017-05-16] MEDS ORDERED: CEFEPIME INJ 1,000 MG in SODIUM CHLORIDE 0.9% INJ 100 ML IV SCH (11:00)
--- NOTE | 2017-05-16 11:25 | HHI.PR ---
Subjective Remarks Follow-up for shortness of breathing and cellulitis Patient stated breathing has improved. Otherwise he stated that he feels the same. Leg pain has improved. He remains afebrile. Discussed with patient's nurse in regards to his chemotherapy medication but still stated that personnel that is supposed to give her the information is in a meeting that will call back. Pharmacy does not carry his chemo med. Objective Vitals Vital Signs Date Time Temp Pulse Resp B/P (MAP) Pulse Ox O2 Delivery O2 Flow Rate FiO2 05/16/17 10:35 05/16/17 09:47 97.0 82 18 120/50 (73) 96 05/16/17 06:00 84 05/16/17 05:00 76 05/16/17 04:00 97.4 79 16 112/49 (70) 97 05/16/17 04:00 88 05/16/17 03:00 69 05/16/17 02:00 70 05/16/17 01:00 90 05/16/17 00:00 97.6 78 16 103/53 (70) 95 05/16/17 00:00 72 05/15/17 23:00 76 05/15/17 22:00 78 05/15/17 21:00 88 05/15/17 20:00 97.3 75 16 101/49 (66) 97 05/15/17 20:00 83 05/15/17 17:39 98.2 93 21 110/49 (69) 98 05/15/17 17:03 05/15/17 16:27 90 21 129/59 (82) 99 Room Air 05/15/17 12:10 98.3 83 19 130/60 (83) 98 Room Air 05/15/17 11:50 98 Room Air I/O 05/15/17 05/15/17 05/15/17 05/16/17 05/16/17 05/16/17 07:00 15:00 23:00 07:00 15:00 23:00 Intake Total 50 ml 250 ml 480 ml 0 ml Output Total 800 ml Balance 50 ml 250 ml -320 ml 0 ml Intake Oral 480 ml IV Total 50 ml 250 ml 0 ml Output Urine Total 800 ml # Voids 1 Result Diagram: 05/16/17 0437 05/16/17 0106 Objective Remarks GENERAL: This is a well-nourished, well-developed patient, in no apparent distress. SKIN: Bilateral lower extremity with erythema more on left. Left extends up to the medial thigh. HEAD: Atraumatic. Normocephalic. No temporal or scalp tenderness. EYES: Pupils equal round and reactive. Extraocular motions intact. No scleral icterus. No injection or drainage. ENT: Nose without bleeding, purulent drainage or septal hematoma. Throat without erythema, tonsillar hypertrophy or exudate. Uvula midline. Airway patent. NECK: Trachea midline. No JVD or lymphadenopathy. Supple, nontender, no meningeal signs. CARDIOVASCULAR: Regular rate and rhythm without murmurs, gallops, or rubs. RESPIRATORY: Clear to auscultation. Breath sounds equal bilaterally. No wheezes , rales, or rhonchi. GASTROINTESTINAL: Abdomen soft, non-tender, nondistended. No hepato-splenomegaly , or palpable masses. No guarding. MUSCULOSKELETAL: Extremities without clubbing, cyanosis, or edema. No joint tenderness, effusion, or edema noted. No calf tenderness. Negative Homans sign bilaterally. NEUROLOGICAL: Awake and alert. Cranial nerves II through XII intact. Motor and sensory grossly within normal limits. Five out of 5 muscle strength in all muscle groups. Normal speech. Medications and IVs Current Medications Sodium Chloride (NS Flush) 2 ml UNSCH PRN IVF FLUSH AFTER USING IV ACCESS; Start 05/15/17 at 12:00; Stop 05/15/17 at 14:36; Status DC Vancomycin HCl 1000 mg/Sodium Chloride 250 ml @ 250 mls/hr ONCE ONCE IV Last administered on 05/15/17 14:20; Start 05/15/17 at 13:00; Stop 05/15/17 at 13 :59; Status DC Piperacillin Sod/ Tazobactam Sod 50 ml @ 100 mls/hr ONCE ONCE IV Last administered on 05/15/17 13:33; Start 05/15/17 at 13:00; Stop 05/15/17 at 13 :29; Status DC Sodium Chloride (NS Flush) 2 ml UNSCH PRN IV FLUSH FLUSH AFTER USING IV ACCESS ; Start 05/15/17 at 14:30 Sodium Chloride (NS Flush) 2 ml BID IV FLUSH Last administered on 05/16/17 09 :31; Start 05/15/17 at 21:00 Acetaminophen (Tylenol) 650 mg Q4H PRN PO TEMP > 100.4; Start 05/15/17 at 14: 30 Ondansetron HCl (Zofran Inj) 4 mg Q6H PRN IVP NAUSEA OR VOMITING; Start at 14:30 Naloxone HCl (Narcan Inj) 0.4 mg UNSCH PRN IV PUSH SEE LABEL COMMENTS; Start 05/15/17 at 14:30 Senna/Docusate Sodium (Jeri-Colace) 1 tab BID PO Last administered on 09:31; Start 05/15/17 at 21:00 Magnesium Hydroxide (Milk Of Magnesia Liq) 30 ml Q12H PRN PO Mild constipation ; Start 05/15/17 at 14:30 Sennosides (Senokot) 17.2 mg Q12H PRN PO Moderate constipation; Start at 14:30 Bisacodyl (Dulcolax Supp) 10 mg DAILY PRN RECTAL SEVERE CONSITIPATION; Start 05/15/17 at 14:30 Lactulose (Lactulose Liq) 30 ml DAILY PRN PO SEVERE CONSITIPATION; Start 05/15 at 14:30 Ceftriaxone Sodium 1000 mg/ Sodium Chloride 100 ml @ 200 mls/hr Q24H IV Last administered on 05/15/17 16:26; Start 05/15/17 at 15:00; Stop 05/16/17 at 10 :02; Status DC Tramadol/ Acetaminophen (Ultracet 37.5-325 Mg) 1 tab Q6H PRN PO pain 3-10 Last administered on 05/15/17 21:56; Start 05/15/17 at 14:30 Methocarbamol (Robaxin) 500 mg Q8HR PO Last administered on 05/16/17 04:11; Start 05/15/17 at 14:30 Lidocaine HCl (Lidoderm 5% Patch.12 Hr) 1 patch DAILY T-DERMAL Last administered on 05/16/17 09:30; Start 05/15/17 at 14:30 Torsemide (Demadex) 100 mg BID@09,18 PO Last administered on 05/16/17 09:30; Start 05/15/17 at 20:45 Metolazone (Zaroxolyn) 5 mg DAILY PO Last administered on 12/29/17at 09:00; Start 05/16/17 at 09:00 Apixaban (Eliquis) 5 mg BID PO ; Start 05/15/17 at 21:00; Stop 05/15/17 at 21: 22; Status DC Amitriptyline HCl (Elavil) 50 mg HS PO Last administered on 05/15/17 21:57; Start 05/15/17 at 21:00 Atorvastatin Calcium (Lipitor) 20 mg HS PO Last administered on 05/15/17 21: 56; Start 05/15/17 at 21:00 Valacyclovir HCl (Valtrex) 500 mg DAILY PO Last administered on 05/16/17 09: 31; Start 05/16/17 at 09:00 Heparin Sodium/ Dextrose 250 ml @ 10 mls/hr TITRATE PRN IV Coagulation Management Last administered on 05/15/17 22:16; Start 05/15/17 at 21:30 Vancomycin HCl 1000 mg/Sodium Chloride 250 ml @ 250 mls/hr Q12H IV ; Start at 10:00; Status UNV Pharmacy Profile Note 0 ml @ 0 mls/hr UNSCH OTHER ; Start 05/16/17 at 10:00 Cefepime HCl 1000 mg/Sodium Chloride 100 ml @ 200 mls/hr Q24H IV ; Start 05/16 at 11:00 Vancomycin HCl 1300 mg/Sodium Chloride 513 ml @ 250 mls/hr ONCE ONCE IV ; Start 05/16/17 at 12:00; Stop 05/16/17 at 14:03 Vancomycin HCl 1250 mg/Sodium Chloride 262.5 ml @ 250 mls/hr Q24H IV ; Start 05/17/17 at 12:00 Miscellaneous Information SPECIFIC LAB TO BE DANE... ONCE ONCE .XX ; Start at 11:45; Stop 05/19/17 at 11:46 A/P Assessment and Plan This is a 87-year-old male with multiple medical conditions complaining of pain after falling in the rehabilitation center and shortness of breathing Lower extremity cellulitis with changes consistent with stasis secondary to edema -Patient was given vancomycin and Zosyn the ED. on Rocephin with no mprovement. Will DC Rocephin and start cefepime and vancomycin. -Continue monitor clinically. Dyspnea -Acute on chronic. Patient is not hypoxic. -Chest x-ray is negative for any acute process. BNP 1678. Last BMP on 09/20/13 1223. Positive for lower extremity edema. Troponin elevated at 1.01 but denies any chest pain. -continue with torsemide. Patient has good urine output. -Strict ins and outs. pending ECHO -Continue monitor clinically. Lower extremity and lower back pain -Exacerbated by muscle spasm. Improved with Robaxin, tramadol and Lidoderm patch. Elevated troponin -Dyno Technician consulted stated most likely type II, noncardiac. Acute on chronic Renal sufficiency -There is no recent baseline. Last creatinine done on 10/17/13 1.11. -creatinine improved today from 2-1.68. History CVA, age fibrillation, chronic elevation, coronary disease as was the placement, history of CHF, multiple myeloma -Continue with home medication. Still awaiting for rehabilitation center to obtain patient chemotherapy medication. DVT prophylaxis -Patient on Eliquis. Discussed with patient's nurse and patient himself. Christina Menjivar MD May 16, 2017 11:25
[2017-05-16] MEDS ORDERED: VANCOMYCIN INJ 1,300 MG in SODIUM CHLORID 0.9% 500 ML INJ 500 ML IV ONE (12:00)
--- NOTE | 2017-05-16 12:16 | ECHRPT ---
Indication: sob CONCLUSIONS Mildly dilated left ventricle. The left ventricular systolic function is nuvv-iw-vkjbthchav reduced with an estimated ejection frac tion in the range of 40%. Focal inferobasal akinesis. The right atrial size is mildly enlarged. Mitral annular calcification is present. Mild mitral valve regurgitation. aortic valve replacement 2012 with at least mild aortic reguritation. Aortic valve area is _1.4_ cm. Aortic valve mean gradient is 17 mmHg. There is mild tricuspid valve regurgitation. The estimated pulmonary arterial pressure is 43.2 mmHg. BP: / HR: Rhythm: MEASUREMENTS (Male / Female) Normal Values Technical Quality:Fair 2D ECHO LV Diastolic Diameter PLAX 6.4 cm 4.2 - 5.9 / 3.9 - 5.3 cm LV Systolic Diameter PLAX 5.5 cm IVS Diastolic Thickness 1.5 cm 0.6 - 1.0 / 0.6 - 0.9 cm LVPW Diastolic Thickness 1.6 cm 0.6 - 1.0 / 0.6 - 0.9 cm LV Relative Wall Thickness 0.5 RV Internal Dim ED PLAX 3.0 cm LVOT Diameter 1.8 cm M-MODE Aortic Root Diameter MM 3.5 cm LA Systolic Diameter MM 4.7 cm LA Ao Ratio MM 1.3 DOPPLER AV Peak Velocity 313.0 cm/s AV Peak Gradient 39.2 mmHg AV Mean Gradient 17.0 mmHg AV Velocity Time Integral 54.1 cm AI Peak Velocity 387.0 cm/s AI Peak Gradient 59.9 mmHg AI Pressure Half Time 564.0 ms LV E' Lateral Velocity 7.6 cm/s LV E' Septal Velocity 6.2 cm/s TR Peak Velocity 288.0 cm/s TR Peak Gradient 33.2 mmHg Right Atrial Pressure 10.0 mmHg Pulmonary Artery Systolic Pressu 43.2 mmHg Right Ventricular Systolic Press 43.2 mmHg FINDINGS LEFT VENTRICLE Mildly dilated left ventricle. The left ventricular systolic function is baln-jv-seatijqeje reduced with an estimated ejection frac tion in the range of 40%. Focal inferobasal akinesis. RIGHT VENTRICLE Normal right ventricular size and systolic function. LEFT ATRIUM The left atrial size is normal. RIGHT ATRIUM The right atrial size is mildly enlarged. ATRIAL SEPTUM Normal atrial septal thickness without atrial level shunting by limited color doppler interrogation. AORTA The aortic root and proximal ascending aorta are normal in size on limited imaging. MITRAL VALVE Structurally normal mitral valve. Mitral annular calcification is present. Mild mitral valve regurgitation. AORTIC VALVE TAVR aortic valve replacement 2012. At least mild aortic regurgitation. Aortic valve area is _1.4_ cm. Aortic valve mean gradient is 17 mmHg. TRICUSPID VALVE Structurally normal tricuspid valve. There is mild tricuspid valve regurgitation. The estimated pulmonary arterial pressure is 43.2 mmHg. PULMONARY VALVE No pulmonary valve regurgitation or stenosis. VESSELS The inferior vena cava is normal in size. PERICARDIUM No pericardial effusion. Boris Lopez MD (Electronically Signed) Final Date:16 May 2017 12:15 Amended: 16 May 2017 16:34
--- NOTE | 2017-05-16 13:13 | PD.CARD.PN ---
Subjective Subjective Remarks No angina. SOB is chronic Objective Medications Current Medications Medications (Trade) Dose Ordered Sig/Kell Route Start Time Stop Time Status Last Admin (NS Flush) 2 ml UNSCH PRN IV FLUSH 05/15/17 14:30 (NS Flush) 2 ml BID IV FLUSH 05/15/17 21:00 05/16/17 09:31 (Tylenol) 650 mg Q4H PRN PO 05/15/17 14:30 (Zofran Inj) 4 mg Q6H PRN IVP 05/15/17 14:30 (Narcan Inj) 0.4 mg UNSCH PRN IV PUSH 05/15/17 14:30 (Jeri-Colace) 1 tab BID PO 05/15/17 21:00 05/16/17 09:31 (Milk Of Magnesia Liq) 30 ml Q12H PRN PO 05/15/17 14:30 (Senokot) 17.2 mg Q12H PRN PO 05/15/17 14:30 (Dulcolax Supp) 10 mg DAILY PRN RECTAL 05/15/17 14:30 (Lactulose Liq) 30 ml DAILY PRN PO 05/15/17 14:30 (Ultracet 37.5-325 Mg) 1 tab Q6H PRN PO 05/15/17 14:30 05/15/17 21:56 (Robaxin) 500 mg Q8HR PO 05/15/17 14:30 05/16/17 04:11 (Lidoderm 5% Patch.12 Hr) 1 patch DAILY T-DERMAL 05/15/17 14:30 05/16/17 09:30 (Demadex) 100 mg BID@,18 PO 05/15/17 20:45 05/16/17 09:30 (Zaroxolyn) 5 mg DAILY PO 05/16/17 09:00 05/16/17 09:00 (Elavil) 50 mg HS PO 05/15/17 21:00 05/15/17 21:57 (Lipitor) 20 mg HS PO 05/15/17 21:00 05/15/17 21:56 (Valtrex) 500 mg DAILY PO 05/16/17 09:00 05/16/17 09:31 Heparin Sodium/ Dextrose 250 ml @ 10 mls/hr TITRATE PRN IV 05/15/17 21:30 05/15/17 22:16 Pharmacy Profile Note 0 ml @ 0 mls/hr UNSCH OTHER 05/16/17 10:00 Cefepime HCl 1000 mg/Sodium Chloride 100 ml @ 200 mls/hr Q24H IV 05/16/17 11:00 Vancomycin HCl 1300 mg/Sodium Chloride 513 ml @ 250 mls/hr ONCE ONCE IV 05/16/17 12:00 05/16/17 14:03 Vancomycin HCl 1250 mg/Sodium Chloride 262.5 ml @ 250 mls/hr Q24H IV 05/17/17 12:00 Miscellaneous Information SPECIFIC LAB TO BE DANE... ONCE ONCE .XX 05/19/17 11:45 05/19/17 11:46 Vital Signs / I&O Vital Signs Date Time Temp Pulse Resp B/P (MAP) Pulse Ox O2 Delivery O2 Flow Rate FiO2 05/16/17 10:35 05/16/17 09:47 97.0 82 18 120/50 (73) 96 05/16/17 06:00 84 05/16/17 05:00 76 05/16/17 04:00 97.4 79 16 112/49 (70) 97 05/16/17 04:00 88 05/16/17 03:00 69 05/16/17 02:00 70 05/16/17 01:00 90 05/16/17 00:00 97.6 78 16 103/53 (70) 95 05/16/17 00:00 72 05/15/17 23:00 76 05/15/17 22:00 78 05/15/17 21:00 88 05/15/17 20:00 97.3 75 16 101/49 (66) 97 05/15/17 20:00 83 05/15/17 17:39 98.2 93 21 110/49 (69) 98 05/15/17 17:03 05/15/17 16:27 90 21 129/59 (82) 99 Room Air I/O 05/15/17 05/15/17 05/15/17 05/16/17 05/16/17 05/16/17 07:00 15:00 23:00 07:00 15:00 23:00 Intake Total 50 ml 250 ml 480 ml 0 ml Output Total 800 ml Balance 50 ml 250 ml -320 ml 0 ml Intake Oral 480 ml IV Total 50 ml 250 ml 0 ml Output Urine Total 800 ml # Voids 1 Physical Exam Alert Chest clear CV S1S2 irr irr. No S3. 2/6 BHAVIN Abd soft Ext: RLE red/ warm c/w cellulitis. No DVT by U/S Laboratory Laboratory Tests Test 05/15/17 15:07 05/15/17 19:32 05/15/17 22:02 05/16/17 01:06 Lactic Acid Level 4.5 mmol/L 2.2 mmol/L 1.7 mmol/L Total Creatine Kinase 63 U/L 73 U/L Troponin I 1.20 NG/ML 1.23 NG/ML White Blood Count 5.7 TH/MM3 Red Blood Count 2.81 MIL/MM3 Hemoglobin 9.5 GM/DL Hematocrit 29.9 % Mean Corpuscular Volume 106.6 FL Mean Corpuscular Hemoglobin 33.7 PG Mean Corpuscular Hemoglobin Concent 31.6 % Red Cell Distribution Width 20.2 % Platelet Count 119 TH/MM3 Mean Platelet Volume 10.8 FL Prothrombin Time 16.7 SEC Prothromb Time International Ratio 1.7 RATIO Activated Partial Thromboplast Time 31.6 SEC Blood Urea Nitrogen 32 MG/DL Creatinine 1.68 MG/DL Random Glucose 96 MG/DL Calcium Level 7.5 MG/DL Sodium Level 142 MEQ/L Potassium Level 3.6 MEQ/L Chloride Level 107 MEQ/L Carbon Dioxide Level 26.3 MEQ/L Anion Gap 9 MEQ/L Estimat Glomerular Filtration Rate 39 ML/MIN Test 05/16/17 04:37 05/16/17 11:00 White Blood Count 5.3 TH/MM3 Red Blood Count 2.73 MIL/MM3 Hemoglobin 9.3 GM/DL Hematocrit 29.3 % Mean Corpuscular Volume 107.4 FL Mean Corpuscular Hemoglobin 34.1 PG Mean Corpuscular Hemoglobin Concent 31.8 % Red Cell Distribution Width 20.3 % Platelet Count 114 TH/MM3 Mean Platelet Volume 11.8 FL Activated Partial Thromboplast Time 48.8 SEC 48.8 SEC Assessment and Plan Problem List: (1) Multiple myeloma ICD Codes: C90.00 - Multiple myeloma not having achieved remission (2) S/p TAVR (transcatheter aortic valve replacement), bioprosthetic ICD Codes: Z95.3 - Presence of xenogenic heart valve (3) 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 Stop heparin (5) Benign hypertension ICD Codes: I10 - Benign hypertension Status: Acute (6) Dyspnea ICD Codes: R06.00 - Dyspnea Status: Acute (7) Elevated troponin ICD Codes: R74.8 - Abnormal levels of other serum enzymes Status: Acute Plan: No angina. Medical therapy Problem Qualifiers (1) Dyspnea: Qualified Codes: R06.02 - Shortness of breath Boris Lopez MD May 16, 2017 13:13
--- NOTE | 2017-05-16 14:55 | EKG ---
Date Performed: 05/15/2017 Time Performed: 12:33:45 PTAGE: 87 years EKG: ATRIAL FIBRILLATION RIGHT BUNDLE BRANCH BLOCK LEFT ANTERIOR FASCICULAR BLOCK SEPTAL MYOCARD IAL INFARCTION Since previous tracing, no significant change noted ABNORMAL ECG PREVIOUS TRACING : 10/17/2013 11.21 DOCTOR: Ifeanyi Gibson Interpretating Date/Time 05/16/2017 14:54:01
[2017-05-16] MEDS: AMITRIPTYLINE HCL 50 MG TAB PO SCH (21:52)
[2017-05-16] MEDS: ATORVASTATIN 20 MG TAB PO SCH (21:53)
[2017-05-16] MEDS: APIXABAN 5 MG TABLET PO SCH (21:53)
[2017-05-16] MEDS: traMADol/ACETAMINOPHEN 37.5/325 1 TAB PO PRN (21:53)
[2017-05-17] VITALS (8 sets, daily range): BP systolic 106–125; BP diastolic 49–66; PULSE 57–87; RESP 16–20; TEMP 97.4–98.8; O2SAT 97–100
[2017-05-17] MEDS: METHOCARBAMOL 500 MG TAB PO SCH ×3 (07:49→20:43)
[2017-05-17] MEDS: DOCUSATE SODIUM 50 MG/SENNA 8.6 MG TAB PO SCH ×2 (09:00→20:44)
[2017-05-17] MEDS: CEFEPIME INJ 1,000 MG in SODIUM CHLORIDE 0.9% INJ 100 ML IV SCH ×2 (09:31→20:42)
[2017-05-17] MEDS: LIDOCAINE HCL 5% PATCH T-DERMAL SCH (09:31)
[2017-05-17] MEDS: APIXABAN 5 MG TABLET PO SCH ×2 (09:31→20:43)
[2017-05-17] MEDS: TORSEMIDE 20 MG TAB PO SCH ×2 (09:32→17:17)
[2017-05-17] MEDS: valACYclovir HCL 500 MG TAB PO SCH (09:32)
[2017-05-17] MEDS: METOLAZONE 5 MG TAB PO SCH (09:32)
[2017-05-17] MEDS: SODIUM CHLORIDE 0.9% FLUSH 10 ML FLUSH IV FLUSH SCH ×2 (09:32→20:42)
[2017-05-17] MEDS: VANCOMYCIN INJ 1,250 MG in SODIUM CHLOR 0.9% 250 ML INJ 250 ML IV SCH (11:37)
--- NOTE | 2017-05-17 15:40 | PD.CARD.PN ---
Subjective Subjective Remarks Very unhappy. Does not like the [facility]. No chest pain. SOB same/ chronic Objective Medications Current Medications Medications (Trade) Dose Ordered Sig/Kell Route Start Time Stop Time Status Last Admin (NS Flush) 2 ml UNSCH PRN IV FLUSH 05/15/17 14:30 (NS Flush) 2 ml BID IV FLUSH 05/15/17 21:00 05/17/17 09:32 (Tylenol) 650 mg Q4H PRN PO 05/15/17 14:30 (Zofran Inj) 4 mg Q6H PRN IVP 05/15/17 14:30 (Narcan Inj) 0.4 mg UNSCH PRN IV PUSH 05/15/17 14:30 (Jeri-Colace) 1 tab BID PO 05/15/17 21:00 05/17/17 09:00 (Milk Of Magnesia Liq) 30 ml Q12H PRN PO 05/15/17 14:30 (Senokot) 17.2 mg Q12H PRN PO 05/15/17 14:30 (Dulcolax Supp) 10 mg DAILY PRN RECTAL 05/15/17 14:30 (Lactulose Liq) 30 ml DAILY PRN PO 05/15/17 14:30 (Ultracet 37.5-325 Mg) 1 tab Q6H PRN PO 05/15/17 14:30 05/16/17 21:53 (Robaxin) 500 mg Q8HR PO 05/15/17 14:30 05/17/17 14:23 (Lidoderm 5% Patch.12 Hr) 1 patch DAILY T-DERMAL 05/15/17 14:30 05/17/17 09:31 (Demadex) 100 mg BID@09,18 PO 05/15/17 20:45 05/17/17 09:32 (Zaroxolyn) 5 mg DAILY PO 05/16/17 09:00 05/17/17 09:32 (Elavil) 50 mg HS PO 05/15/17 21:00 05/16/17 21:52 (Lipitor) 20 mg HS PO 05/15/17 21:00 05/16/17 21:53 (Valtrex) 500 mg DAILY PO 05/16/17 09:00 05/17/17 09:32 Pharmacy Profile Note 0 ml @ 0 mls/hr UNSCH OTHER 05/16/17 10:00 Vancomycin HCl 1250 mg/Sodium Chloride 262.5 ml @ 250 mls/hr Q24H IV 05/17/17 12:00 05/17/17 11:37 Miscellaneous Information SPECIFIC LAB TO BE DANE... ONCE ONCE .XX 05/19/17 11:45 05/19/17 11:46 (Eliquis) 5 mg BID PO 05/16/17 21:00 05/17/17 09:31 Patient Own Medication PT OWN MED: Revli... DAILY PO 05/16/17 15:45 05/29/17 09:01 Future hold 05/17/17 09:29 Cefepime HCl 1000 mg/Sodium Chloride 100 ml @ 200 mls/hr Q12H IV 05/17/17 09:00 05/17/17 09:31 Vital Signs / I&O Vital Signs Date Time Temp Pulse Resp B/P (MAP) Pulse Ox O2 Delivery O2 Flow Rate FiO2 05/17/17 11:42 97.4 57 18 116/49 (71) 97 05/17/17 11:14 64 05/17/17 09:26 97.4 71 20 106/51 (69) 100 05/17/17 00:44 97.6 71 16 118/54 (75) 97 05/17/17 00:11 66 05/16/17 23:08 16 05/16/17 20:30 98.6 81 20 129/56 (80) 81 05/16/17 20:30 83 05/16/17 18:32 05/16/17 15:41 97.4 84 18 122/76 (91) 98 I/O 05/16/17 05/16/17 05/16/17 05/17/17 05/17/17 05/17/17 07:00 15:00 23:00 07:00 15:00 23:00 Intake Total 480 ml 0 ml 613 ml 720 ml 100 ml Output Total 800 ml 1300 ml 350 ml Balance -320 ml 0 ml 613 ml -580 ml -250 ml Intake Oral 480 ml 720 ml IV Total 0 ml 613 ml 100 ml Output Urine Total 800 ml 1300 ml 350 ml # Voids 1 Physical Exam Alert Chest clear CV S1S2 irr irr. No S3. 2/6 BHAVIN Abd soft Ext: RLE red/ warm c/w cellulitis. 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 Cellulitis not resolved. He doesn't want cath. Dr. Vanegas copper flotation operator the next 2 days - please call if help needed. Problem Qualifiers (1) Dyspnea: Qualified Codes: R06.02 - Shortness of breath Boris Lopez MD May 17, 2017 15:40
--- NOTE | 2017-05-17 17:24 | HHI.PR ---
Subjective Remarks 87M with h/o Multiple Myeloma admitted for right leg cellulitis and elevated troponin level. He is unhappy with his current SNF, tells me his daughter a year ago from acute multiple myeloma and then asks me about hospice. He has no complaints, but says he feels like he is a burden on everyone. Objective Vitals Vital Signs Date Time Temp Pulse Resp B/P (MAP) Pulse Ox O2 Delivery O2 Flow Rate FiO2 05/17/17 11:42 97.4 57 18 116/49 (71) 97 05/17/17 11:14 64 05/17/17 09:26 97.4 71 20 106/51 (69) 100 05/17/17 00:44 97.6 71 16 118/54 (75) 97 05/17/17 00:11 66 05/16/17 23:08 16 05/16/17 20:30 98.6 81 20 129/56 (80) 81 05/16/17 20:30 83 05/16/17 18:32 I/O 05/16/17 05/16/17 05/16/17 05/17/17 05/17/17 05/17/17 07:00 15:00 23:00 07:00 15:00 23:00 Intake Total 480 ml 0 ml 613 ml 720 ml 100 ml Output Total 800 ml 1300 ml 350 ml Balance -320 ml 0 ml 613 ml -580 ml -250 ml Intake Oral 480 ml 720 ml IV Total 0 ml 613 ml 100 ml Output Urine Total 800 ml 1300 ml 350 ml # Voids 1 Result Diagram: 05/16/17 0437 05/16/17 0106 Objective Remarks GENERAL: Then man, apathetic SKIN: Right llower leg has erythema, swelling and warmth HEAD: Normocephalic. EYES: No scleral icterus. No injection or drainage. NECK: Supple, trachea midline. No JVD or lymphadenopathy. CARDIOVASCULAR: Regular rate and rhythm without murmurs, gallops, or rubs. RESPIRATORY: Breath sounds equal bilaterally. No accessory muscle use. GASTROINTESTINAL: Abdomen soft, non-tender, nondistended. MUSCULOSKELETAL: No cyanosis, or edema. BACK: Nontender without obvious deformity. No CVA tenderness. A/P Problem List: (1) Cellulitis of right leg without foot ICD Code: L03.115 - Cellulitis of right lower limb (2) Multiple myeloma ICD Code: C90.00 - Multiple myeloma not having achieved remission (3) Troponin level elevated ICD Code: R74.8 - Abnormal levels of other serum enzymes Assessment and Plan Right lower leg cellulitis Continue cefepime and vancomycin Improving slowly, afebrile Multiple Myeloma Chronic type, no change, but immunocompromised due to condition IV antibiotics until cellulitis obviously improved. Dyspnea Chronic, no changes today, monitor on telemetry Low Back Pain with sciatica Robaxin, Tramadol, Lidocaine patch Elevated troponin Most likely type 2 per cardiology Chronic Renal Insufficiency Improved compared to admission, chronic History CVA, Atrial fibrillation No changes, on telemetry, anticoagulated DVT prophylaxis Continue Galdino Muniz MD May 17, 2017 17:24
[2017-05-17] MEDS: traMADol/ACETAMINOPHEN 37.5/325 1 TAB PO PRN (18:07)
[2017-05-17] MEDS: ATORVASTATIN 20 MG TAB PO SCH (20:43)
[2017-05-17] MEDS: AMITRIPTYLINE HCL 50 MG TAB PO SCH (20:44)
[2017-05-18] VITALS (7 sets, daily range): BP systolic 101–132; BP diastolic 45–57; PULSE 58–87; RESP 16–20; TEMP 97.2–97.8; O2SAT 94–99
[2017-05-18] MEDS: METHOCARBAMOL 500 MG TAB PO SCH ×3 (04:53→23:20)
[2017-05-18] MEDS: traMADol/ACETAMINOPHEN 37.5/325 1 TAB PO PRN ×3 (05:54→23:20)
[2017-05-18 07:04] LABS: CREATININE 1.84 MG/DL (0.60-1.30)
[2017-05-18] MEDS: LIDOCAINE HCL 5% PATCH T-DERMAL SCH (10:08)
[2017-05-18] MEDS: valACYclovir HCL 500 MG TAB PO SCH (10:09)
[2017-05-18] MEDS: METOLAZONE 5 MG TAB PO SCH (10:09)
[2017-05-18] MEDS: DOCUSATE SODIUM 50 MG/SENNA 8.6 MG TAB PO SCH ×2 (10:09→23:20)
[2017-05-18] MEDS: APIXABAN 5 MG TABLET PO SCH ×2 (10:09→23:20)
[2017-05-18] MEDS: TORSEMIDE 20 MG TAB PO SCH ×2 (10:09→17:47)
[2017-05-18] MEDS: CEFEPIME INJ 1,000 MG in SODIUM CHLORIDE 0.9% INJ 100 ML IV SCH ×2 (10:10→23:21)
[2017-05-18] MEDS: SODIUM CHLORIDE 0.9% FLUSH 10 ML FLUSH IV FLUSH SCH ×2 (10:11→23:19)
[2017-05-18] MEDS: VANCOMYCIN INJ 1,250 MG in SODIUM CHLOR 0.9% 250 ML INJ 250 ML IV SCH (11:45)
--- NOTE | 2017-05-18 14:13 | HHI.PR ---
Subjective Remarks Pt has some low back pain today, but he is asking about going back to his [facility]. He still has elevated troponins, but has refused intervention when he had a discussion with cardiology. Objective Vitals Vital Signs Date Time Temp Pulse Resp B/P (MAP) Pulse Ox O2 Delivery O2 Flow Rate FiO2 05/18/17 11:59 97.2 79 16 132/57 (82) 95 05/18/17 11:01 63 05/18/17 08:02 97.2 58 20 101/50 (67) 99 05/18/17 04:00 97.5 65 18 107/45 (65) 98 05/18/17 00:00 97.7 82 18 122/52 (75) 94 05/17/17 20:00 98.8 87 18 109/49 (69) 100 05/17/17 19:15 87 05/17/17 17:29 97.4 76 18 125/66 (85) 97 I/O 05/17/17 05/17/17 05/17/17 05/18/17 05/18/17 05/18/17 07:00 15:00 23:00 07:00 15:00 23:00 Intake Total 720 ml 100 ml 360 ml 480 ml Output Total 1300 ml 350 ml 425 ml 1400 ml Balance -580 ml -250 ml -65 ml -920 ml Intake Oral 720 ml 360 ml 480 ml IV Total 100 ml Output Urine Total 1300 ml 350 ml 425 ml 1400 ml Result Diagram: 05/16/17 0437 05/18/17 0525 Objective Remarks GENERAL: Then man, apathetic SKIN: Right lower leg less warm, less redness, less induration HEAD: Normocephalic. EYES: No scleral icterus. No injection or drainage. NECK: Supple, trachea midline. No JVD or lymphadenopathy. CARDIOVASCULAR: Regular rate and rhythm without murmurs, gallops, or rubs. RESPIRATORY: Breath sounds equal bilaterally. No accessory muscle use. GASTROINTESTINAL: Abdomen soft, non-tender, nondistended. MUSCULOSKELETAL: No cyanosis, or edema. BACK: Generally tender, not tender to palpation A/P Problem List: (1) Cellulitis of right leg without foot ICD Code: L03.115 - Cellulitis of right lower limb (2) Multiple myeloma ICD Code: C90.00 - Multiple myeloma not having achieved remission (3) Troponin level elevated ICD Code: R74.8 - Abnormal levels of other serum enzymes Assessment and Plan Right lower leg cellulitis Continue cefepime and vancomycin Noticeable improvement compared to yesterday One more day of IV antibiotics, possible discharge tomorrow Multiple Myeloma Chronic type, no change, but immunocompromised due to condition Elevated troponin Although cardiology expressed concern, 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
[2017-05-18] MEDS ORDERED: PILL SPLITTER OTHER PRN (14:30)
[2017-05-18] MEDS: AMITRIPTYLINE HCL 50 MG TAB PO SCH (23:19)
[2017-05-18] MEDS: ATORVASTATIN 20 MG TAB PO SCH (23:21)
[2017-05-19] VITALS (8 sets, daily range): BP systolic 110–121; BP diastolic 50–58; PULSE 57–78; RESP 16–20; TEMP 97.4–98; O2SAT 96–99
[2017-05-19] MEDS: METHOCARBAMOL 500 MG TAB PO SCH ×3 (05:40→21:12)
[2017-05-19] MEDS: METOLAZONE 5 MG TAB PO SCH (09:09)
[2017-05-19] MEDS: SERTRALINE HCL 50 MG TAB PO SCH (09:09)
[2017-05-19] MEDS: TORSEMIDE 20 MG TAB PO SCH ×2 (09:09→17:58)
[2017-05-19] MEDS: DOCUSATE SODIUM 50 MG/SENNA 8.6 MG TAB PO SCH ×2 (09:09→21:12)
[2017-05-19] MEDS: valACYclovir HCL 500 MG TAB PO SCH (09:09)
[2017-05-19] MEDS: APIXABAN 5 MG TABLET PO SCH ×2 (09:09→21:12)
[2017-05-19] MEDS: LIDOCAINE HCL 5% PATCH T-DERMAL SCH (09:10)
[2017-05-19] MEDS: CEFEPIME INJ 1,000 MG in SODIUM CHLORIDE 0.9% INJ 100 ML IV SCH ×2 (09:10→21:00)
[2017-05-19] MEDS: SODIUM CHLORIDE 0.9% FLUSH 10 ML FLUSH IV FLUSH SCH ×2 (09:10→21:12)
[2017-05-19] MEDS ORDERED: SKIN PROTECTANT PASTE 57 GM TUBE TOPICAL PRN (11:30)
[2017-05-19] MEDS ORDERED: PHARMACY ORDERED LAB ONE (11:45)
[2017-05-19] MEDS: traMADol/ACETAMINOPHEN 37.5/325 1 TAB PO PRN (14:11)
[2017-05-19 15:03] LABS: CREATININE 2.59 MG/DL (0.60-1.30)
--- NOTE | 2017-05-19 15:35 | HHI.PR ---
Subjective Remarks Pt is up in chair today, deals with chronic low back pain so he is a bit uncomfortable, but happy to see the nurse and I. He feels he is ready to go to a SNF. Objective Vitals Vital Signs Date Time Temp Pulse Resp B/P (MAP) Pulse Ox O2 Delivery O2 Flow Rate FiO2 05/19/17 12:00 97.4 70 18 120/56 (77) 96 05/19/17 09:29 97.8 68 16 112/50 (70) 97 05/19/17 04:00 57 05/19/17 04:00 97.7 64 18 116/52 (73) 97 05/19/17 00:20 20 05/19/17 00:00 97.9 70 20 118/50 (72) 96 05/19/17 00:00 70 05/18/17 20:00 87 05/18/17 20:00 97.8 78 20 117/49 (71) 97 05/18/17 16:53 97.4 71 20 113/52 (72) 99 I/O 05/18/17 05/18/17 05/18/17 05/19/17 05/19/17 05/19/17 07:00 15:00 23:00 07:00 15:00 23:00 Intake Total 480 ml 840 ml 480 ml Output Total 1400 ml 1300 ml 1500 ml Balance -920 ml -460 ml -1020 ml Intake Oral 480 ml 840 ml 480 ml Output Urine Total 1400 ml 1300 ml 1500 ml # Voids 5 # Bowel Movements 0 Result Diagram: 05/16/17 0437 05/19/17 1440 Objective Remarks GENERAL: Then man, apathetic SKIN: Right lower leg cellulitis resolved for the most part HEAD: Normocephalic. EYES: No scleral icterus. No injection or drainage. NECK: Supple, trachea midline. No JVD or lymphadenopathy. CARDIOVASCULAR: Regular rate and rhythm without murmurs, gallops, or rubs. RESPIRATORY: Breath sounds equal bilaterally. No accessory muscle use. GASTROINTESTINAL: Abdomen soft, non-tender, nondistended. MUSCULOSKELETAL: No cyanosis, or edema. BACK: Generally tender, not tender to palpation A/P Problem List: (1) Cellulitis of right leg without foot ICD Code: L03.115 - Cellulitis of right lower limb (2) Multiple myeloma ICD Code: C90.00 - Multiple myeloma not having achieved remission (3) Troponin level elevated ICD Code: R74.8 - Abnormal levels of other serum enzymes Assessment and Plan Right lower leg cellulitis Cefepime and vancomycin until discharged, then PO meds Signs of cellulitis mostly resolved Discharge expected soon, once SNF available to receive him Multiple Myeloma Chronic type, no change, but immunocompromised due to condition Elevated troponin Downward trend now, cardiology consulted, patient refused any interventions Depression Patient lost his daughter a year ago to acute multiple myeloma, he has low self value and a number of other signs of major depressive disorder Started on Zoloft yesterday Low Back Pain with sciatica Robaxin, Tramadol, Lidocaine patch Chronic Renal Insufficiency Improved compared to admission, chronic History CVA, Atrial fibrillation No changes, on telemetry, anticoagulated DVT prophylaxis Continue Eliquis Discharge Planning Medically ready for discharge when SNF available Galdino Berger MD May 19, 2017 15:34
[2017-05-19] MEDS: ATORVASTATIN 20 MG TAB PO SCH (21:12)
[2017-05-19] MEDS: AMITRIPTYLINE HCL 50 MG TAB PO SCH (21:12)
[2017-05-20] VITALS (7 sets, daily range): BP systolic 101–136; BP diastolic 35–72; PULSE 48–78; RESP 14–22; TEMP 97.4–98.4; O2SAT 95–99
[2017-05-20] MEDS: METHOCARBAMOL 500 MG TAB PO SCH ×3 (04:55→21:36)
[2017-05-20] MEDS: traMADol/ACETAMINOPHEN 37.5/325 1 TAB PO PRN ×2 (04:56→18:44)
[2017-05-20] MEDS: METOLAZONE 5 MG TAB PO SCH (09:10)
[2017-05-20] MEDS: valACYclovir HCL 500 MG TAB PO SCH (09:11)
[2017-05-20] MEDS: SERTRALINE HCL 50 MG TAB PO SCH (09:11)
[2017-05-20] MEDS: TORSEMIDE 20 MG TAB PO SCH ×2 (09:11→18:40)
[2017-05-20] MEDS: DOCUSATE SODIUM 50 MG/SENNA 8.6 MG TAB PO SCH ×2 (09:11→21:36)
[2017-05-20] MEDS: APIXABAN 5 MG TABLET PO SCH (09:12)
[2017-05-20] MEDS: SODIUM CHLORIDE 0.9% FLUSH 10 ML FLUSH IV FLUSH SCH ×2 (09:14→21:36)
[2017-05-20] MEDS: LIDOCAINE HCL 5% PATCH T-DERMAL SCH (09:23)
[2017-05-20 09:25] LABS: BICARBONATE 42.4 MEQ/L (21.0-32.0); CALCIUM 9.2 MG/DL (8.5-10.1); CREATININE 2.43 MG/DL (0.60-1.30)
[2017-05-20] MEDS ORDERED: POTASSIUM CHLORIDE 10 MEQ CAP PO ONE (10:30)
--- NOTE | 2017-05-20 16:38 | HHI.PR ---
Subjective Remarks Though Pt appears at his baseline, he had a very low potassium level today which precluded his planned discharge. Family was at bedside earlier and is selecting a SNF/Rehab for him. Objective Vitals Vital Signs Date Time Temp Pulse Resp B/P (MAP) Pulse Ox O2 Delivery O2 Flow Rate FiO2 05/20/17 15:31 97.8 55 16 110/72 (85) 95 05/20/17 12:30 97.4 70 16 104/35 (58) 95 05/20/17 09:02 97.8 48 16 117/42 (67) 97 05/20/17 04:51 97.4 53 14 101/49 (66) 99 05/20/17 00:00 97.8 78 16 105/52 (69) 99 05/20/17 00:00 72 05/19/17 20:00 97.8 76 18 121/55 (77) 99 05/19/17 19:05 65 05/19/17 19:00 66 I/O 05/19/17 05/19/17 05/19/17 05/20/17 05/20/17 05/20/17 06:59 14:59 22:59 06:59 14:59 22:59 Intake Total 480 ml 100 ml 580 ml Output Total 1500 ml 600 ml 750 ml Balance -1020 ml 100 ml -600 ml -170 ml Intake Oral 480 ml 480 ml IV Total 100 ml 100 ml Output Urine Total 1500 ml 600 ml 750 ml # Voids 5 1 # Bowel Movements 0 0 Result Diagram: 05/16/17 0437 05/20/17 6339 Objective Remarks GENERAL: Then man, apathetic SKIN: Right lower leg cellulitis resolved for the most part HEAD: Normocephalic. EYES: No scleral icterus. No injection or drainage. NECK: Supple, trachea midline. No JVD or lymphadenopathy. CARDIOVASCULAR: Regular rate and rhythm without murmurs, gallops, or rubs. RESPIRATORY: Breath sounds equal bilaterally. No accessory muscle use. GASTROINTESTINAL: Abdomen soft, non-tender, nondistended. MUSCULOSKELETAL: No cyanosis, or edema. BACK: Generally tender, not tender to palpation A/P Problem List: (1) Cellulitis of right leg without foot ICD Code: L03.115 - Cellulitis of right lower limb (2) Multiple myeloma ICD Code: C90.00 - Multiple myeloma not having achieved remission (3) Troponin level elevated ICD Code: R74.8 - Abnormal levels of other serum enzymes Assessment and Plan Hypokalemia Very low at 1.6 earlier Begin IV replacement protocol Recheck potassium level after replacement complete Will follow up in a.m. and treat further if necessary PO replacement on home meds to resume upon discharge Right lower leg cellulitis Cefepime and vancomycin until discharged, then PO meds Signs of cellulitis mostly resolved Multiple Myeloma Chronic type, no change, but immunocompromised due to condition Elevated troponin Downward trend now, cardiology consulted, patient refused any interventions Depression Patient lost his daughter a year ago to acute multiple myeloma, he has low self value and a number of other signs of major depressive disorder Started on Zoloft yesterday Low Back Pain with sciatica Robaxin, Tramadol, Lidocaine patch Chronic Renal Insufficiency Improved compared to admission, chronic History CVA, Atrial fibrillation No changes, on telemetry, anticoagulated DVT prophylaxis Continue Eliquis Discharge Planning Low potassium level delaying discharge. Galdino Berger MD May 20, 2017 16:38
[2017-05-20] MEDS ORDERED: POTASSIUM CHLOR 20 MEQ PREMIX 100 ML IV ONE (17:00)
[2017-05-20] MEDS ORDERED: VANCOMYCIN INJ 1,250 MG in SODIUM CHLOR 0.9% 250 ML INJ 250 ML IV ONE (21:00)
[2017-05-20] MEDS: CEFEPIME INJ 1,000 MG in SODIUM CHLORIDE 0.9% INJ 100 ML IV SCH (21:36)
[2017-05-20] MEDS: ATORVASTATIN 20 MG TAB PO SCH (21:37)
[2017-05-20] MEDS: APIXABAN 2.5 MG TABLET PO SCH (21:37)
[2017-05-20] MEDS: AMITRIPTYLINE HCL 50 MG TAB PO SCH (21:37)
[2017-05-20] MEDS ORDERED: traMADol/ACETAMINOPHEN 37.5/325 1 TAB PO ONE (22:30)
--- NOTE | 2017-05-20 22:37 | HHI.PR ---
Addendum Remarks 2230hrs: RN reports patient complaining of intractable pain and not yet due for pain medications. However RN also reports increased confusion after receiving Robaxin 1 hour ago. Unclear patient's baseline although [employer]AD reported confusion worse than previous nights. Will hold Robaxin for now. Give Ultracet for pain. Check labs including CBC, BMP, ammonia, UA. Sierra Kurtz PA-C May 20, 2017 22:37
[2017-05-20 23:37] LABS: AUTOMATED NEUTROPHIL # 4.3 TH/MM3 (1.8-7.7); BASOPHIL # 0.1 TH/MM3 (0-0.2); BASOPHIL % 0.9 % (0.0-2.0); EOSINOPHIL # 0.1 TH/MM3 (0-0.4); EOSINOPHIL % 1.7 % (0.0-4.0); HEMATOCRIT 31.8 % (39.0-51.0); HEMOGLOBIN 10.5 GM/DL (13.0-17.0); LYMPH % 4.8 % (9.0-44.0); LYMPHOCYTE # 0.3 TH/MM3 (1.0-4.8); MEAN CELL VOLUME 103.1 FL (80.0-100.0); MEAN CORPUSCULAR HEMOGLOBIN 34.1 PG (27.0-34.0); MEAN CORPUSCULAR HGB CONC 33.1 % (32.0-36.0); MEAN PLATELET VOLUME 11.3 FL (7.0-11.0); MONO % 21.1 % (0.0-8.0); MONOCYTE # 1.3 TH/MM3 (0-0.9); NEUT % 71.5 % (16.0-70.0); PLATELET COUNT 140 TH/MM3 (150-450); RED BLOOD COUNT 3.08 MIL/MM3 (4.50-5.90); WHITE BLOOD COUNT 6.1 TH/MM3 (4.0-11.0)
[2017-05-20 23:42] LABS: BACTERIA, URINE RARE /hpf; BILIRUBIN, URINE NEG (NEG); BLOOD, URINE TRACE (NEG); GLUCOSE,URINE NEG (NEG); HYALINE CAST, URINE 29 /lpf (RARE); KETONE, URINE NEG (NEG); NITRITE,URINE NEG (NEG); PH, URINE 5.5 (5.0-8.5); SQUAMOUS EPITHELIAL CELL URINE <1 /hpf (0-5); URINE COLOR LIGHT-YELLOW (YELLW/STRAW); URINE LEUKOCYTE ESTERASE NEG (NEG)
[2017-05-20 23:52] LABS: BICARBONATE 41.6 MEQ/L (21.0-32.0); CALCIUM 9.1 MG/DL (8.5-10.1); CREATININE 2.44 MG/DL (0.60-1.30)
[2017-05-21] VITALS (11 sets, daily range): BP systolic 104–159; BP diastolic 49–93; PULSE 60–91; RESP 16–22; TEMP 97.5–98.4; O2SAT 94–99
[2017-05-21] MEDS ORDERED: POTASSIUM CHLORIDE 25 MEQ EFFERVESCENT TAB PO ONE (00:30)
[2017-05-21] MEDS: POTASSIUM CHLOR 10 MEQ PREMIX 100 ML IV SCH ×6 (01:07→17:54)
[2017-05-21] MEDS: traMADol/ACETAMINOPHEN 37.5/325 1 TAB PO PRN (02:16)
[2017-05-21 07:06] LABS: HEMATOCRIT 33.6 % (39.0-51.0); HEMOGLOBIN 11.1 GM/DL (13.0-17.0); MEAN CELL VOLUME 102.8 FL (80.0-100.0); MEAN CORPUSCULAR HGB CONC 33.1 % (32.0-36.0); PLATELET COUNT 142 TH/MM3 (150-450); RED BLOOD COUNT 3.27 MIL/MM3 (4.50-5.90); RED CELL DISTRIBUTION WIDTH 19.2 % (11.6-17.2); WHITE BLOOD COUNT 7.3 TH/MM3 (4.0-11.0)
[2017-05-21] MEDS: valACYclovir HCL 500 MG TAB PO SCH (09:00)
[2017-05-21] MEDS: METOLAZONE 5 MG TAB PO SCH (09:02)
[2017-05-21] MEDS: SERTRALINE HCL 50 MG TAB PO SCH (09:02)
[2017-05-21] MEDS: DOCUSATE SODIUM 50 MG/SENNA 8.6 MG TAB PO SCH (09:02)
[2017-05-21] MEDS: LIDOCAINE HCL 5% PATCH T-DERMAL SCH (09:02)
[2017-05-21] MEDS: APIXABAN 2.5 MG TABLET PO SCH ×2 (09:02→20:55)
[2017-05-21] MEDS: TORSEMIDE 20 MG TAB PO SCH ×2 (09:02→17:54)
[2017-05-21] MEDS: SODIUM CHLORIDE 0.9% FLUSH 10 ML FLUSH IV FLUSH SCH ×2 (09:07→20:54)
[2017-05-21 09:37] LABS: MAGNESIUM 2.6 MG/DL (1.5-2.5)
[2017-05-21 13:49] LABS: ALT (GPT) 20 U/L (12-78); AST (GOT) 15 U/L (15-37); BICARBONATE 43.3 MEQ/L (21.0-32.0); BLOOD UREA NITROGEN 66 MG/DL (7-18); CALCIUM 9.6 MG/DL (8.5-10.1); CHLORIDE 86 MEQ/L (98-107); CREATININE 2.26 MG/DL (0.60-1.30); GLOMERULAR FILTRATION RATE 28 ML/MIN (>89); SODIUM (NA) 137 MEQ/L (136-145)
[2017-05-21 13:55] LABS: ALKALINE PHOSPHATASE 114 U/L (45-117); GLUCOSE,RANDOM 151 MG/DL (74-106); TOTAL BILIRUBIN ADULT 1.5 MG/DL (0.2-1.0); TOTAL PROTEIN 6.2 GM/DL (6.4-8.2)
--- NOTE | 2017-05-21 17:03 | MB ---
cc: KERRIE HAHN M.D. DATE OF CONSULTATION: 05/21/2017. REASON FOR CONSULTATION: Oncology was consulted to render opinion regarding a patient with a history of multiple myeloma. ATTENDING PHYSICIAN: Dr. Berger. HISTORY OF PRESENT ILLNESS: Mr. Newton is a very pleasant 87-year-old man brought in from an assisted living facility with complaint of shortness of breath and lower extremity edema. He is not very good historian and history was obtained from his daughter at the bedside. The patient reportedly was diagnosed with multiple myeloma many years ago. 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 He had progression of disease and started Revlimid and Decadron about two or three years ago. He has had close follow up with Dr. Hernandez and supposedly his multiple myeloma is well-controlled. He had a fall about two weeks ago and since then he has not been feeling well. He has back pain and lower extremity pain. When he arrived, he was found to have right lower extremity cellulitis. He has had chronic shortness of breath but that seems to be stable. He denies any fever or chills. He denies any chest pain. He denies any nausea or vomiting or abdominal pain. He denies any change in urinary habits. PAST MEDICAL HISTORY: 1. Multiple myeloma. 2. Chronic atrial fibrillation. 3. Coronary artery disease. 4. Hypertension. 5. Stroke. 6. Congestive heart failure. 7. Chronic kidney disease. 8. Prostate cancer. PAST SURGICAL HISTORY: 1. Bovine aortic valve replacement. 2. Coronary stent placement. FAMILY HISTORY: Daughter of multiple myeloma in her 50s. Mother of stroke. SOCIAL HISTORY: He resides in a [facility]. He does not smoke. He drinks occasionally. ALLERGIES: 1. IODINE. 2. LEVAQUIN. 3. POTASSIUM. 4. SHELLFISH. 5. SODIUM IODIDE. CURRENT MEDICATIONS: 1. Cefepime. 2. Eliquis. 3. Revlimid. 4. Weekly Decadron. 5. Metolazone. 6. Valtrex. 7. Elavil. 8. Demadex. 9. Robaxin (which has been discontinued). REVIEW OF SYSTEMS: CONSTITUTIONAL: Generalized weakness. EYES: Negative. ENT: Negative. CARDIOVASCULAR: As above. RESPIRATORY: As above. GI: Denies any nausea or vomiting, diarrhea or abdominal pain. : Denies any dysuria or hematuria. MUSCULOSKELETAL: As above. HEMATOLOGIC: As above. ENDOCRINE: Negative. DERMATOLOGIC: As above. PSYCHIATRIC: Negative. NEUROLOGIC: Negative. PHYSICAL EXAMINATION: VITAL SIGNS: Temperature 98, blood pressure 129/56, 02 saturation 97%. GENERAL: He is alert and oriented times three. He is a little weak. HEAD, EYES, EARS, NOSE, THROAT: Atraumatic, normocephalic. Pupils equal, round, reactive to light. Extraocular muscles intact. No scleral icterus. OROPHARYNX: Dry mucosa. No lesions. NECK: No thyromegaly. No palpable mass. LYMPHATIC: No palpable cervical, clavicular, axillary or inguinal lymph nodes. CARDIOVASCULAR: Regular S1 and S2. No murmur. LUNGS: Clear to auscultation anteriorly. ABDOMEN: Abdomen soft. There is a little soreness in the left lower quadrant. No rebound. No guarding. Positive bowel sounds. EXTREMITIES: No cyanosis. No significant edema. SKIN: Cellulitis right lower extremity is very mild. NEUROLOGIC EXAM: Nonfocal. LABORATORY DATA: WBCs 7.3, hemoglobin 11.1, platelet count 142,000. Creatinine of 2.26. Total protein 6.2. ASSESSMENT: 1. Multiple myeloma: He is being followed by Dr. Hernandez. He was first diagnosed with smoldering multiple myeloma. He started treatment with Revlimid and Decadron about two to three years ago according to his daughter, but she is not very sure. He has close follow up with Dr. Hernandez and reportedly his multiple myeloma is well-controlled. He is currently on Revlimid and weekly Decadron. In light of his acute illness with renal failure and sepsis, I will hold his Revlimid for now. He can follow up with Dr. Hernandez once discharged from the hospital to resume treatment. I will check his protein studies. 2. Right lower extremity cellulitis. He is currently on antibiotics. The cellulitis has significantly improved. 3. Elevated troponin. Cardiology is following. 4. Chronic kidney disease. It is unclear what his baseline renal function is. 5. History of stroke. 6. Chronic atrial fibrillation on anticoagulation. PLAN: 1. Extensive discussion with the patient and his daughter. 2. Hold Revlimid for now. 3. Check protein studies. 4. Monitor CBC and renal function. 5. Continue antibiotics per the primary team. 6. The patient will follow up with Dr. Hernandez once discharged from the hospital to continue treatment for his multiple myeloma. Thank you Dr. Berger for asking me to see this patient. MD KATHRIN Rapp/DWAYNE /3:54 PM /4:35 PM LONNIE
--- NOTE | 2017-05-21 17:50 | HHI.PR ---
Subjective Remarks Pt has increased confusion, agitation. He had a low potassium show up randomly yesterday, confusion began overnight. Objective Vitals Vital Signs Date Time Temp Pulse Resp B/P (MAP) Pulse Ox O2 Delivery O2 Flow Rate FiO2 05/21/17 15:37 98.0 68 16 129/56 (80) 97 05/21/17 12:45 97.8 74 20 118/76 (90) 94 05/21/17 08:50 97.7 91 20 159/93 (115) 99 05/21/17 04:29 97.5 67 22 122/66 (84) 97 05/21/17 04:00 68 05/21/17 03:16 16 05/21/17 00:28 97.6 63 21 104/63 (77) 97 05/21/17 00:16 60 05/20/17 23:45 16 05/20/17 20:09 70 05/20/17 20:04 98.4 67 22 136/51 (79) 96 I/O 05/20/17 05/20/17 05/20/17 05/21/17 05/21/17 05/21/17 07:00 15:00 23:00 07:00 15:00 23:00 Intake Total 580 ml 480 ml 240 ml Output Total 750 ml 1100 ml 350 ml Balance -170 ml -620 ml -110 ml Intake Oral 480 ml 480 ml 240 ml IV Total 100 ml Output Urine Total 750 ml 1100 ml 350 ml # Voids 1 2 1 # Bowel Movements 0 2 Result Diagram: 05/21/17 0637 05/21/17 1305 Objective Remarks GENERAL: Then man, apathetic HEENT: Very dry oral mucosa SKIN: Right lower leg cellulitis resolved HEAD: Normocephalic. EYES: No scleral icterus. No injection or drainage. NECK: Supple, trachea midline. No JVD or lymphadenopathy. CARDIOVASCULAR: Regular rate and rhythm without murmurs, gallops, or rubs. RESPIRATORY: Breath sounds equal bilaterally. No accessory muscle use. GASTROINTESTINAL: Abdomen soft, non-tender, nondistended. MUSCULOSKELETAL: No cyanosis, or edema. BACK: Generally tender, not tender to palpation A/P Problem List: (1) Cellulitis of right leg without foot ICD Code: L03.115 - Cellulitis of right lower limb (2) Multiple myeloma ICD Code: C90.00 - Multiple myeloma not having achieved remission (3) Troponin level elevated ICD Code: R74.8 - Abnormal levels of other serum enzymes Assessment and Plan Hypokalemia Low to 1.6 yesterday, improving slowly despite IV replacement Continue IV replacement Confusion Dehydration is most likely scenario, all other labwork (besides potassium) appears within his normal fluctuation Also consider AMS related to atypical stroke, CT of the brain ordered Multiple medications where held or stopped, including muscle relaxer and his new SSRI Xanax prn for agitation Right lower leg cellulitis Cefepime and vancomycin until discharged, then PO meds Signs of cellulitis mostly resolved Multiple Myeloma Chronic type, no change, but immunocompromised due to condition Elevated troponin Downward trend now, cardiology consulted, patient refused any interventions Depression Zoloft held as extra precaution Low Back Pain with sciatica Tramadol, Lidocaine patch Robaxin held as extra precaution Chronic Renal Insufficiency Improved compared to admission, chronic History CVA, Atrial fibrillation No changes, on telemetry, anticoagulated DVT prophylaxis Continue Eliquis Discharge Planning Low potassium and confusion, discharge held Galdino Berger MD May 21, 2017 5:50 pm
[2017-05-21 18:03] LABS: BICARBONATE 40.4 MEQ/L (21.0-32.0); CALCIUM 8.2 MG/DL (8.5-10.1); CREATININE 1.92 MG/DL (0.60-1.30)
[2017-05-21] MEDS: CEFEPIME INJ 1,000 MG in SODIUM CHLORIDE 0.9% INJ 100 ML IV SCH (20:54)
[2017-05-21] MEDS: AMITRIPTYLINE HCL 50 MG TAB PO SCH (20:55)
[2017-05-21] MEDS: NS + KCL 20 MEQ INJ 1,000 ML IV SCH (20:56)
[2017-05-22] VITALS (12 sets, daily range): BP systolic 110–129; BP diastolic 46–92; PULSE 61–127; RESP 16–18; TEMP 97.4–98.4; O2SAT 96–99
[2017-05-22 05:47] LABS: KAPPA LAMBDA RATIO 1.69 (1.57-3.93)
[2017-05-22 05:57] LABS: RANDOM VANCOMYCIN 22.3 COMMENT
[2017-05-22] MEDS: NS + KCL 20 MEQ INJ 1,000 ML IV SCH ×2 (08:00→20:09)
[2017-05-22] MEDS: SODIUM CHLORIDE 0.9% FLUSH 10 ML FLUSH IV FLUSH SCH ×2 (09:00→20:10)
[2017-05-22] MEDS: valACYclovir HCL 500 MG TAB PO SCH (09:00)
--- NOTE | 2017-05-22 09:41 | RADRPT ---
EXAM DATE/TIME: 05/22/2017 09:03 [facility] COMPARISON: No previous studies available for comparison. INDICATIONS : Altered mental status. RADIATION DOSE: 69.15 CTDIvol (mGy) MEDICAL HISTORY : Cardiovascular disease. Stroke Carcinoma, prostate. SURGICAL HISTORY : None. ENCOUNTER: Initial ACUITY: 1 day PAIN SCALE: Non-responsive LOCATION: cranial TECHNIQUE: Multiple contiguous axial images were obtained of the head. Using automated exposure control and adj ustment of the mA and/or kV according to patient size, radiation dose was kept as low as reasonably a chievable to obtain optimal diagnostic quality images. DICOM format image data is available electro nically for review and comparison. FINDINGS: There is no evidence for intracranial hemorrhage, mass effect, mass lesions, edema, or extra-axial fl uid collections. The visualized bony structures appear intact. The ventricles are normal size for t he patient's age. There are no signs of acute infarction for technique. There is encephalomalacia in the right occipital lobe posterior parietal lobe with areas of calcifications due to old infarction. CONCLUSION: Old encephalomalacia on the right without hemorrhage or mass effect. Sameer Schafer MD on May 22, 2017 at 9:32 Board Certified Radiologist. This report was verified electronically.
[2017-05-22] MEDS: APIXABAN 2.5 MG TABLET PO SCH ×2 (09:55→20:10)
[2017-05-22] MEDS: METOLAZONE 5 MG TAB PO SCH (09:55)
[2017-05-22] MEDS: LIDOCAINE HCL 5% PATCH T-DERMAL SCH (09:55)
[2017-05-22] MEDS: traMADol/ACETAMINOPHEN 37.5/325 1 TAB PO PRN ×2 (09:56→20:10)
--- NOTE | 2017-05-22 11:19 | PD.ONC.PN ---
Subjective Subjective Remarks Feeling better. No leg pain. No CP/SOB. Objective Data Date Time Temp Pulse Resp B/P (MAP) Pulse Ox O2 Delivery O2 Flow Rate FiO2 05/22/17 08:00 97.8 70 18 118/52 (74) 96 05/22/17 06:00 76 05/22/17 05:00 62 05/22/17 04:00 69 05/22/17 04:00 98.0 63 18 129/46 (73) 98 05/22/17 03:00 62 05/22/17 02:00 68 05/22/17 01:00 70 05/22/17 00:00 72 05/22/17 00:00 97.5 61 18 124/49 (74) 99 05/21/17 23:00 70 05/21/17 22:00 86 05/21/17 21:00 66 05/21/17 20:00 98.4 64 18 124/49 (74) 94 05/21/17 20:00 77 05/21/17 15:37 98.0 68 16 129/56 (80) 97 05/21/17 12:45 97.8 74 20 118/76 (90) 94 Result Diagram: 05/21/17 0637 05/21/17 1716 Laboratory Results Laboratory Tests Test 05/21/17 13:05 05/21/17 17:16 05/22/17 03:43 05/22/17 10:53 D-Dimer Quantitative (PE/DVT) 0.42 MG/L FEU Blood Urea Nitrogen 66 MG/DL 56 MG/DL Creatinine 2.26 MG/DL 1.92 MG/DL Random Glucose 151 MG/DL 107 MG/DL Total Protein 6.2 GM/DL 6.1 GM/DL Albumin 3.0 GM/DL Calcium Level 9.6 MG/DL 8.2 MG/DL Alkaline Phosphatase 114 U/L Aspartate Amino Transf (AST/SGOT) 15 U/L Alanine Aminotransferase (ALT/SGPT) 20 U/L Total Bilirubin 1.5 MG/DL Sodium Level 137 MEQ/L 134 MEQ/L Potassium Level 2.1 MEQ/L 5.8 MEQ/L Chloride Level 86 MEQ/L 90 MEQ/L Carbon Dioxide Level 43.3 MEQ/L 40.4 MEQ/L Anion Gap 8 MEQ/L 4 MEQ/L Estimat Glomerular Filtration Rate 28 ML/MIN 33 ML/MIN Troponin I 0.28 NG/ML Ammonia LESS THAN 10 MCMOL/L Random Vancomycin Level 22.3 COMMENT Immunoglobulin G Total 456 MG/DL Immunoglobulin A 147 MG/DL Immunoglobulin M 46 MG/DL Immunoglobulin [employer]/Lambda Ratio 1.69 [employer] Light Chain Analysis 127 MG/DL Lambda Light Chain Analysis 75 MG/DL Administered Medications Medications (Trade) Dose Ordered Sig/Kell Route PRN Reason Start Time Stop Time Status Last Admin Dose Admin Sodium Chloride (NS Flush) 2 ml BID IV FLUSH 05/15/17 21:00 05/21/17 09:07 Senna/Docusate Sodium (Jeri-Colace) 1 tab BID PO 05/15/17 21:00 Future Hold 05/21/17 09:02 Magnesium Hydroxide (Milk Of Magnesia Liq) 30 ml Q12H PRN PO Mild constipation 05/15/17 14:30 05/21/17 01:05 Bisacodyl (Dulcolax Supp) 10 mg DAILY PRN RECTAL SEVERE CONSITIPATION 05/15/17 14:30 05/21/17 03:41 Lactulose (Lactulose Liq) 30 ml DAILY PRN PO SEVERE CONSITIPATION 05/15/17 14:30 05/21/17 05:25 Tramadol/ Acetaminophen (Ultracet 37.5-325 Mg) 1 tab Q6H PRN PO pain 3-10 05/15/17 14:30 05/22/17 09:56 Methocarbamol (Robaxin) 500 mg Q8HR PO 05/15/17 14:30 Future Hold 05/20/17 21:36 Lidocaine HCl (Lidoderm 5% Patch.12 Hr) 1 patch DAILY T-DERMAL 05/15/17 14:30 05/22/17 09:55 Torsemide (Demadex) 100 mg BID@ PO 05/15/17 20:45 05/21/17 17:54 Metolazone (Zaroxolyn) 5 mg DAILY PO 05/16/17 09:00 05/22/17 09:55 Amitriptyline HCl (Elavil) 50 mg HS PO 05/15/17 21:00 05/21/17 20:55 Atorvastatin Calcium (Lipitor) 20 mg HS PO 05/15/17 21:00 Future Hold 05/20/17 21:37 Valacyclovir HCl (Valtrex) 500 mg DAILY PO 05/16/17 09:00 05/22/17 09:00 Sertraline HCl (Zoloft) 25 mg DAILY PO 05/19/17 09:00 Future Hold 05/21/17 09:02 Petrolatum/Zinc Oxide (Ilex Skin Protectant Paste) 1 applic DAILY PRN TOPICAL skin protection 05/19/17 11:30 05/19/17 17:59 Cefepime HCl 1000 mg/Sodium Chloride 100 ml @ 200 mls/hr Q24H IV 05/20/17 21:00 05/21/17 20:54 Apixaban (Eliquis) 2.5 mg BID PO 05/20/17 21:00 05/22/17 09:55 Potassium Chloride/Sodium Chloride 1,000 ml @ 100 mls/hr Q10H IV 05/21/17 22:00 05/22/17 08:00 Objective Remarks GENERAL: Well-nourished, well-developed patient. Weak SKIN: Warm and dry. HEAD: Normocephalic. EYES: No scleral icterus. No injection or drainage. NECK: Supple, trachea midline. No JVD or lymphadenopathy. LYMPHATIC: No adenopathy. CARDIOVASCULAR: Regular rate and rhythm without murmurs. RESPIRATORY: Breath sounds equal bilaterally. No accessory muscle use. GASTROINTESTINAL: Abdomen soft, slightl tenderness LLQ, nondistended. +BS EXTREMITIES: No cyanosis, or edema. RLE cellulitis continue to improved and almost completely resolved. MUSCULOSKELETAL: Adequate muscle tone. NEUROLOGICAL: No obvious focal deficit. Awake, alert, and oriented x3. Assessment/Plan Assessment 1. Multiple myeloma: He is being followed by Dr. Hernandez. 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 He started treatment with Revlimid and Decadron about two to three years ago according to his daughter, but she is not very sure. He has close follow up with Dr. Hernandez and reportedly multiple myeloma is well-controlled. He is will on Revlimid and weekly Decadron. In light of his acute illness with renal failure and sepsis, I will hold his Revlimid for now. He can follow up with Dr. Hernandez once discharged from the hospital to resume treatment. 05/22/17 Protein studies pending. 2. Right lower extremity cellulitis. He is currently on antibiotics. The cellulitis has significantly improved. 3. Elevated troponin. Cardiology is following. 4. Chronic kidney disease. It is unclear what his baseline renal function is. 5. Chronic atrial fibrillation on anticoagulation. Plan PLAN: 1. Continue to hold Revlimid. 2. Monitor protein studies. 3. Monitor CBC and renal function. 4. Continue antibiotics per the primary team. 5. The patient will follow up with Dr. Hernandez once discharged from the hospital to continue treatment for his multiple myeloma. Linden Ferreira MD May 22, 2017 11:19
[2017-05-22 11:25] LABS: BICARBONATE 43.7 MEQ/L (21.0-32.0); CALCIUM 9.1 MG/DL (8.5-10.1); CREATININE 1.99 MG/DL (0.60-1.30)
[2017-05-22] MEDS ORDERED: POTASSIUM CHLORIDE 20 MEQ CONTROLLED RELEASE TAB PO ONE (13:30)
--- NOTE | 2017-05-22 14:29 | HHI.PR ---
Subjective Remarks Pt still pleasantly confused but able to answers some questions. cannot tell me where he is but does recognize his daughter, doesn't know , knows he is in a hospital, its may but think its the . complains of back pain and abdominal pain, no nausea or vomiting. per daughter, pt had a BM Objective Vitals Vital Signs Date Time Temp Pulse Resp B/P (MAP) Pulse Ox O2 Delivery O2 Flow Rate FiO2 05/22/17 08:00 97.8 70 18 118/52 (74) 96 05/22/17 06:00 76 05/22/17 05:00 62 05/22/17 04:00 69 05/22/17 04:00 98.0 63 18 129/46 (73) 98 05/22/17 03:00 62 05/22/17 02:00 68 05/22/17 01:00 70 05/22/17 00:00 72 05/22/17 00:00 97.5 61 18 124/49 (74) 99 05/21/17 23:00 70 05/21/17 22:00 86 05/21/17 21:00 66 05/21/17 20:00 98.4 64 18 124/49 (74) 94 05/21/17 20:00 77 05/21/17 15:37 98.0 68 16 129/56 (80) 97 I/O 05/21/17 05/21/17 05/21/17 05/22/17 05/22/17 05/22/17 07:00 15:00 23:00 07:00 15:00 23:00 Intake Total 240 ml 340 ml Output Total 350 ml 235 ml Balance -110 ml 105 ml Intake Oral 240 ml 240 ml IV Total 100 ml Output Urine Total 350 ml 235 ml # Voids 1 10 7 # Bowel Movements 2 6 Result Diagram: 05/21/17 0637 05/22/17 1053 Imaging Last Impressions Head CT 05/21/17 0000 Signed Impressions: Service Date/Time: May 09:03 - CONCLUSION: Old encephalomalacia on the right without hemorrhage or mass effect. Sameer Schafer MD Lower Extremity Ultrasound 05/15/17 1152 Signed Impressions: Service Date/Time: April 11:59 - CONCLUSION: No evidence of DVT. Fredi Pozo MD Chest X-Ray 05/15/17 1152 Signed Impressions: Service Date/Time: April 12:46 - CONCLUSION: 1. Cardiomegaly without evidence of acute cardiopulmonary process. 2. Prostatic aortic valve. Cortez Watson MD Objective Remarks GENERAL: Thin man, appears uncomfortable, sitting on recliner HEENT: Very dry oral mucosa SKIN: Right lower leg cellulitis resolved HEAD: Normocephalic. EYES: No scleral icterus. No injection or drainage. NECK: Supple, trachea midline. CARDIOVASCULAR: Regular rate and rhythm without murmurs RESPIRATORY: Breath sounds equal bilaterally. No accessory muscle use. GASTROINTESTINAL: Abdomen soft, somewhat distended, discomfort w deep palpation throughout, hypoactive bowel sounds. no guarding or rebound. MUSCULOSKELETAL: No edema. BACK: Generally tender but cannot tell me exactly where A/P Problem List: (1) Cellulitis of right leg without foot ICD Code: L03.115 - Cellulitis of right lower limb (2) Multiple myeloma ICD Code: C90.00 - Multiple myeloma not having achieved remission (3) Troponin level elevated ICD Code: R74.8 - Abnormal levels of other serum enzymes Assessment and Plan Hypokalemia Low to 1.8 today, give 40mEq po and 40mEq IV. Continue IV replacement Repeat K level tonight and continue to replace. Confusion Dehydration is most likely scenario, all other labwork (besides potassium) appears within his normal fluctuation CT no acute process. Multiple medications where held or stopped, including muscle relaxer and his new SSRI Pt still confused Abdominal pain KUB ordered. Right lower leg cellulitis Cefepime and vancomycin until discharged, then PO meds Signs of cellulitis seems to have resolved Multiple Myeloma Chronic type, no change, but immunocompromised due to condition Elevated troponin Downward trend now, cardiology following, patient refused any interventions Depression Zoloft held as extra precaution Low Back Pain with sciatica Robaxin held as extra precaution check lumbar and thoracic x-ray as per daughter pt did have a fall 2 weeks ago. Pt also complains of pain but his meds have been held due to confusion He is on tramadol and lidocaine patch. Chronic Renal Insufficiency Improved compared to admission, chronic History CVA, Atrial fibrillation No changes, on telemetry, anticoagulated DVT prophylaxis Continue Eliquis Discharge Planning Low potassium and confusion, discharge held Discharge Planning continue to replete potassium. repeat in AM KUB ordered as pt complains of abdominal pain but is having BMs Sis Vann MD May 22, 2017 14:28
[2017-05-22] MEDS: TORSEMIDE 20 MG TAB PO SCH (14:50)
--- NOTE | 2017-05-22 16:17 | RADRPT ---
EXAM DATE/TIME: 05/22/2017 15:54 [facility] COMPARISON: No previous studies available for comparison. INDICATIONS : Abdomen pain, denies injury MEDICAL HISTORY : Arthritis. Cardiovascular disease. Stroke Carcinoma, prostate. altered mental status SURGICAL HISTORY : None. ENCOUNTER: Initial ACUITY: 1 day PAIN SCORE: Non-responsive. LOCATION: Abdomen FINDINGS: The bowel gas is nonspecific. There are no signs of obstruction or free air for technique. No defini te calcified stones are identified for technique. Moderate stool is present throughout the colon. Chr onic vascular calcifications are present involving the aorta, iliac arteries without any significant stenosis or aneurysmal dilatations for technique and there is extensive calcification of splenic crystal ry as well as. CONCLUSION: Unremarkable study except for stool. Sameer Schafer MD on May 22, 2017 at 16:15 Board Certified Radiologist. This report was verified electronically.
--- NOTE | 2017-05-22 16:19 | RADRPT ---
EXAM DATE/TIME: 05/22/2017 15:56 [facility] COMPARISON: No previous studies available for comparison. INDICATIONS : Low back pain, denies injury MEDICAL HISTORY : Arthritis. Cardiovascular disease. Stroke Carcinoma, prostate. altered mental status SURGICAL HISTORY : None. ENCOUNTER: Initial ACUITY: 1 day PAIN SCORE: Non-responsive. LOCATION: Lumbar spine FINDINGS: Approximate 30% compression of mid body of L1 is identified of indeterminate age. Moderate degenarati ve changes are seen within the disc space and facets. Chronic atherosclerotic calcifications are seen without any definite aneurysmal dilitations for technique. CONCLUSION: Compression deformity of L1 of indeterminate age. Sameer Schafer MD on May 22, 2017 at 16:16 Board Certified Radiologist. This report was verified electronically.
--- NOTE | 2017-05-22 16:21 | RADRPT ---
EXAM DATE/TIME: 05/22/2017 15:55 [facility] COMPARISON: No previous studies available for comparison. INDICATIONS : Thoracic spine pain, denies injury MEDICAL HISTORY : Arthritis. Cardiovascular disease. Stroke Carcinoma, prostate. altered mental status SURGICAL HISTORY : None. ENCOUNTER: Initial ACUITY: 1 day PAIN SCORE: Non-responsive. LOCATION: Thoracic spine FINDINGS: No appreciable compression deformities are seen. Significant degenerative change is present within m ultiple disc spaces. CONCLUSION: Significant degenerative changes, otherwise unremarkable. Sameer Schafer MD on May 22, 2017 at 16:18 Board Certified Radiologist. This report was verified electronically.
[2017-05-22] MEDS: POTASSIUM CHLOR 20 MEQ PREMIX 100 ML IV SCH ×2 (17:03→20:45)
[2017-05-22] MEDS: AMITRIPTYLINE HCL 50 MG TAB PO SCH (20:10)
[2017-05-22] MEDS: CEFEPIME INJ 1,000 MG in SODIUM CHLORIDE 0.9% INJ 100 ML IV SCH (23:05)
[2017-05-23] VITALS (8 sets, daily range): BP systolic 91–129; BP diastolic 52–79; PULSE 50–92; RESP 16–20; TEMP 97.5–97.9; O2SAT 97–100
[2017-05-23] MEDS: POTASSIUM CHLOR 10 MEQ PREMIX 100 ML IV SCH ×4 (01:00→23:57)
[2017-05-23 04:04] LABS: AUTOMATED NEUTROPHIL # 6.1 TH/MM3 (1.8-7.7); BASOPHIL # 0.1 TH/MM3 (0-0.2); BASOPHIL % 0.9 % (0.0-2.0); EOSINOPHIL # 0.2 TH/MM3 (0-0.4); EOSINOPHIL % 2.9 % (0.0-4.0); HEMATOCRIT 32.9 % (39.0-51.0); HEMOGLOBIN 10.9 GM/DL (13.0-17.0); LYMPH % 4.4 % (9.0-44.0); LYMPHOCYTE # 0.3 TH/MM3 (1.0-4.8); MEAN CORPUSCULAR HEMOGLOBIN 34.4 PG (27.0-34.0); MEAN CORPUSCULAR HGB CONC 33.1 % (32.0-36.0); MONO % 11.4 % (0.0-8.0); MONOCYTE # 0.9 TH/MM3 (0-0.9); NEUT % 80.4 % (16.0-70.0); PLATELET COUNT 122 TH/MM3 (150-450); RED BLOOD COUNT 3.17 MIL/MM3 (4.50-5.90); RED CELL DISTRIBUTION WIDTH 19.3 % (11.6-17.2); WHITE BLOOD COUNT 7.5 TH/MM3 (4.0-11.0)
[2017-05-23] MEDS: NS + KCL 20 MEQ INJ 1,000 ML IV SCH ×2 (04:18→14:18)
[2017-05-23 04:30] LABS: BICARBONATE 39.9 MEQ/L (21.0-32.0); CALCIUM 9.1 MG/DL (8.5-10.1); CREATININE 2.11 MG/DL (0.60-1.30); MAGNESIUM 2.8 MG/DL (1.5-2.5); RANDOM VANCOMYCIN 17.3 COMMENT
[2017-05-23] MEDS: POTASSIUM CHLOR 20 MEQ PREMIX 100 ML IV SCH ×4 (05:57→14:17)
[2017-05-23] MEDS ORDERED: TORSEMIDE 20 MG TAB PO SCH (09:00)
[2017-05-23] MEDS: METOLAZONE 5 MG TAB PO SCH (09:00)
[2017-05-23] MEDS: valACYclovir HCL 500 MG TAB PO SCH (09:26)
[2017-05-23] MEDS: APIXABAN 2.5 MG TABLET PO SCH ×2 (09:26→21:32)
[2017-05-23] MEDS: LIDOCAINE HCL 5% PATCH T-DERMAL SCH (09:27)
--- NOTE | 2017-05-23 13:40 | HHI.PR ---
Subjective Remarks Daughter and at bedside. They tell me that apparently pt's med rec was changed at the [facility] and they are not sure why. Daughter brings in what he is supposed to be on and has given the list to the RN. daughter feels that her father is more awake and less confused. when he first sees me he tells me that his urethra is bothering him (RN had just inserted stovall). Pt denies any pain or nausea or vomiting. He didn't eat his breakfast per daughter but pt states he is willing to try lunch Objective Vitals Vital Signs Date Time Temp Pulse Resp B/P (MAP) Pulse Ox O2 Delivery O2 Flow Rate FiO2 05/23/17 12:49 97.5 76 16 113/58 (76) 97 05/23/17 09:42 97.7 70 16 115/58 (77) 100 05/23/17 04:14 97.5 69 16 129/60 (83) 99 05/23/17 00:26 97.5 65 16 91/70 (77) 97 97/54 (68) 05/22/17 20:31 127 05/22/17 20:10 98.4 81 16 119/92 (101) 99 05/22/17 19:42 97.6 70 18 110/62 (78) 98 I/O 05/22/17 05/22/17 05/22/17 05/23/17 05/23/17 05/23/17 07:00 15:00 23:00 07:00 15:00 23:00 Intake Total 480 ml Output Total 50 ml Balance 430 ml Intake Oral 480 ml Output Urine Total 50 ml # Voids 7 3 # Bowel Movements 1 Result Diagram: 05/23/17 0345 05/23/17 0345 Imaging Last Impressions Thoracic Spine X-Ray 05/22/17 0000 Signed Impressions: Service Date/Time: May 15:55 - CONCLUSION: Significant degenerative changes, otherwise unremarkable. Sameer Schafer MD Lumbar Spine X-Ray 05/22/17 0000 Signed Impressions: Service Date/Time: May 15:56 - CONCLUSION: Compression deformity of L1 of indeterminate age. Sameer Schafer MD Abdomen X-Ray 05/22/17 0000 Signed Impressions: Service Date/Time: May 15:54 - CONCLUSION: Unremarkable study except for stool. Sameer Schafer MD Head CT 05/21/17 0000 Signed Impressions: Service Date/Time: May 09:03 - CONCLUSION: Old encephalomalacia on the right without hemorrhage or mass effect. Sameer Schafer MD Lower Extremity Ultrasound 05/15/17 1152 Signed Impressions: Service Date/Time: April 11:59 - CONCLUSION: No evidence of DVT. Fredi Pozo MD Chest X-Ray 05/15/17 1152 Signed Impressions: Service Date/Time: April 12:46 - CONCLUSION: 1. Cardiomegaly without evidence of acute cardiopulmonary process. 2. Prostatic aortic valve. Cortez Watson MD Objective Remarks GENERAL: Thin man, laying in bed pleasantly confused but much less confused than yesterday HEENT: Very dry oral mucosa SKIN: Right lower leg cellulitis resolved HEAD: Normocephalic. EYES: No scleral icterus. No injection or drainage. NECK: Supple, trachea midline. CARDIOVASCULAR: Regular rate and rhythm without murmurs RESPIRATORY: Breath sounds equal bilaterally. No accessory muscle use. GASTROINTESTINAL: Abdomen soft, somewhat nondistended, no guarding or rebound MUSCULOSKELETAL: No edema. A/P Problem List: (1) Cellulitis of right leg without foot ICD Code: L03.115 - Cellulitis of right lower limb (2) Multiple myeloma ICD Code: C90.00 - Multiple myeloma not having achieved remission (3) Troponin level elevated ICD Code: R74.8 - Abnormal levels of other serum enzymes Assessment and Plan Hypokalemia Low to 2.1 today, currently being replaced. repeat around 3pm Continue IV replacement hold torsemide for now (pt takes 100mg po daily but has been getting it BID here which has contributed to the hypokalemia). d/c metolazone as pt not on this per daughter Confusion seems much improved today. all other labwork (besides potassium) appears within his normal fluctuation CT no acute process. Multiple medications where held or stopped, including muscle relaxer and his new SSRI Abdominal pain KUB ordered. Right lower leg cellulitis Cefepime and vancomycin until discharged, then PO meds Signs of cellulitis has resolved Multiple Myeloma Chronic type, no change, but immunocompromised due to condition Revlemid held by oncology Elevated troponin Downward trend now, cardiology following, patient refused any interventions Depression Zoloft held as extra precaution Low Back Pain with sciatica Robaxin held as extra precaution lumbar xray didn't show any acute problems. pt more comfortable today He is on tramadol and lidocaine patch. Chronic Renal Insufficiency Improved compared to admission, chronic Stovall placed today as pt was retaining 800ml. Family agreeable to keep stovall in as pt does have a hx of BPH. Pt will need to f/u w urology as an outpatient for voiding trials. History CVA, Atrial fibrillation No changes, on telemetry, anticoagulated DVT prophylaxis Continue Eliquis Discharge Planning continue to replete potassium. repeat in AM RN to update pt's med rec. holding diuretics for now but consider restarting once K replete. Resume sooner if clinically indicated. Sis Vann MD May 23, 2017 13:40
[2017-05-23] MEDS: SODIUM CHLORIDE 0.9% FLUSH 10 ML FLUSH IV FLUSH SCH ×2 (14:30→21:35)
--- NOTE | 2017-05-23 14:45 | PD.ONC.PN ---
Subjective Subjective Remarks Afebrile overnight. Patient remains confused. Is complaining of back pain. Daughter in room feels patient has been more confused since he has arrived in the hospital. She states just two weeks ago the patient was more lucid. Objective Data Date Time Temp Pulse Resp B/P (MAP) Pulse Ox O2 Delivery O2 Flow Rate FiO2 05/23/17 12:49 97.5 76 16 113/58 (76) 97 05/23/17 09:42 97.7 70 16 115/58 (77) 100 05/23/17 04:14 97.5 69 16 129/60 (83) 99 05/23/17 00:26 97.5 65 16 91/70 (77) 97 97/54 (68) 05/22/17 20:31 127 05/22/17 20:10 98.4 81 16 119/92 (101) 99 05/22/17 19:42 97.6 70 18 110/62 (78) 98 05/23/17 05/23/17 05/23/17 07:00 15:00 23:00 Intake Total 480 ml Output Total 50 ml Balance 430 ml Result Diagram: 05/23/17 0345 05/23/17 0345 Laboratory Results Laboratory Tests Test 05/22/17 14:48 05/23/17 03:45 Potassium Level 2.3 MEQ/L 2.1 MEQ/L White Blood Count 7.5 TH/MM3 Red Blood Count 3.17 MIL/MM3 Hemoglobin 10.9 GM/DL Hematocrit 32.9 % Mean Corpuscular Volume 104.0 FL Mean Corpuscular Hemoglobin 34.4 PG Mean Corpuscular Hemoglobin Concent 33.1 % Red Cell Distribution Width 19.3 % Platelet Count 122 TH/MM3 Mean Platelet Volume 12.0 FL Neutrophils (%) (Auto) 80.4 % Lymphocytes (%) (Auto) 4.4 % Monocytes (%) (Auto) 11.4 % Eosinophils (%) (Auto) 2.9 % Basophils (%) (Auto) 0.9 % Neutrophils # (Auto) 6.1 TH/MM3 Lymphocytes # (Auto) 0.3 TH/MM3 Monocytes # (Auto) 0.9 TH/MM3 Eosinophils # (Auto) 0.2 TH/MM3 Basophils # (Auto) 0.1 TH/MM3 CBC Comment DIFF FINAL Differential Comment Blood Urea Nitrogen 67 MG/DL Creatinine 2.11 MG/DL Random Glucose 119 MG/DL Calcium Level 9.1 MG/DL Magnesium Level 2.8 MG/DL Sodium Level 145 MEQ/L Chloride Level 95 MEQ/L Carbon Dioxide Level 39.9 MEQ/L Anion Gap 10 MEQ/L Estimat Glomerular Filtration Rate 30 ML/MIN Random Vancomycin Level 17.3 COMMENT Administered Medications Medications (Trade) Dose Ordered Sig/Kell Route PRN Reason Start Time Stop Time Status Last Admin Dose Admin Sodium Chloride (NS Flush) 2 ml BID IV FLUSH 05/15/17 21:00 05/23/17 14:30 Senna/Docusate Sodium (Jeri-Colace) 1 tab BID PO 05/15/17 21:00 Future Hold 05/21/17 09:02 Magnesium Hydroxide (Milk Of Magnesia Liq) 30 ml Q12H PRN PO Mild constipation 05/15/17 14:30 05/21/17 01:05 Bisacodyl (Dulcolax Supp) 10 mg DAILY PRN RECTAL SEVERE CONSITIPATION 05/15/17 14:30 05/21/17 03:41 Lactulose (Lactulose Liq) 30 ml DAILY PRN PO SEVERE CONSITIPATION 05/15/17 14:30 05/21/17 05:25 Tramadol/ Acetaminophen (Ultracet 37.5-325 Mg) 1 tab Q6H PRN PO pain 3-10 05/15/17 14:30 05/22/17 20:10 Methocarbamol (Robaxin) 500 mg Q8HR PO 05/15/17 14:30 Future Hold 05/20/17 21:36 Lidocaine HCl (Lidoderm 5% Patch.12 Hr) 1 patch DAILY T-DERMAL 05/15/17 14:30 05/23/17 09:27 Amitriptyline HCl (Elavil) 50 mg HS PO 05/15/17 21:00 05/22/17 20:10 Atorvastatin Calcium (Lipitor) 20 mg HS PO 05/15/17 21:00 Future Hold 05/20/17 21:37 Valacyclovir HCl (Valtrex) 500 mg DAILY PO 05/16/17 09:00 05/23/17 09:26 Sertraline HCl (Zoloft) 25 mg DAILY PO 05/19/17 09:00 Future Hold 05/21/17 09:02 Petrolatum/Zinc Oxide (Ilex Skin Protectant Paste) 1 applic DAILY PRN TOPICAL skin protection 05/19/17 11:30 05/19/17 17:59 Cefepime HCl 1000 mg/Sodium Chloride 100 ml @ 200 mls/hr Q24H IV 05/20/17 21:00 05/22/17 23:05 Apixaban (Eliquis) 2.5 mg BID PO 05/20/17 21:00 05/23/17 09:26 Potassium Chloride/Sodium Chloride 1,000 ml @ 100 mls/hr Q10H IV 05/21/17 22:00 05/23/17 14:18 Objective Remarks GENERAL: Elderly male supine in bed, confused. SKIN: Warm and dry. HEAD: Normocephalic. EYES: No injection or drainage. NECK: Supple, trachea midline. CARDIOVASCULAR: +S1/S2 RESPIRATORY: Breath sounds equal bilaterally. No accessory muscle use. GASTROINTESTINAL: Abdomen soft, non-tender, nondistended. EXTREMITIES: No cyanosis NEUROLOGICAL: confused. does not follow commands. oriented x 0 Assessment/Plan Assessment 1. Multiple myeloma: He is being followed by Dr. Hernandez. 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 He started treatment with Revlimid and Decadron about two to three years ago according to his daughter, but she is not very sure. He has close follow up with Dr. Hernandez and reportedly multiple myeloma is well-controlled. He is will on Revlimid and weekly Decadron. In light of his acute illness with renal failure and sepsis, I will hold his Revlimid for now. He can follow up with Dr. Hernandez once discharged from the hospital to resume treatment. 05/23/17 Protein studies remain pending. 2. Right lower extremity cellulitis. He is currently on antibiotics. The cellulitis has significantly improved. 3. Elevated troponin. Cardiology is following. 4. Chronic kidney disease. It is unclear what his baseline renal function is. 5. Chronic atrial fibrillation on anticoagulation. Plan 1. monitor CBC, BMP 2. check CT T/L spine 3. obtain records from Dr. Hernandez's office. 4. await protein studies. Attending Statement The exam, history, and the medical decision-making described in the above note were completed with the assistance of the mid-level provider. I reviewed and agree with the findings presented. I attest that I had a [id number] encounter with the patient on the same day, and personally performed and documented my assessment and findings in the medical record. More confused this am. RLE cellulitis resolving. Etiology of mental status change unclear but doubt due to myeloma. Protein studies pending. Continue to hold revlimid. Jolene Montilla May 23, 2017 14:45 Linden Ferreira MD May 23, 2017 20:18
[2017-05-23] MEDS ORDERED: LORazepam 0.5 MG TAB PO PRN (15:00)
[2017-05-23] MEDS ORDERED: VITA250T3 PO (15:13)
[2017-05-23] MEDS ORDERED: AMIT50TA3 PO (15:13)
[2017-05-23] MEDS ORDERED: LIPI20TA PO (15:13)
[2017-05-23] MEDS ORDERED: ASPI-516 CHEW (15:13)
[2017-05-23] MEDS ORDERED: DOCU100C15 PO (15:13)
[2017-05-23] MEDS ORDERED: TORS100T2 PO (15:13)
[2017-05-23] MEDS ORDERED: POTA-163 PO ×2 (15:13)
[2017-05-23] MEDS ORDERED: SILD20TA11 PO (15:13)
[2017-05-23] MEDS ORDERED: METO1TAB42 PO (15:13)
[2017-05-23] MEDS ORDERED: VITA1000 PO (15:13)
[2017-05-23] MEDS ORDERED: VALA500T PO (15:13)
[2017-05-23] MEDS ORDERED: magnesium (15:13)
[2017-05-23] MEDS ORDERED: MULT-65 PO (15:13)
[2017-05-23] MEDS ORDERED: iron (15:13)
[2017-05-23] MEDS ORDERED: [UNRECOGNIZED DRUG - OTHER] (15:13)
[2017-05-23] MEDS ORDERED: APIX5TAB PO (15:13)
[2017-05-23] MEDS ORDERED: OMEP20TA93 PO (15:13)
[2017-05-23] MEDS ORDERED: POTASSIUM CHLORIDE 20 MEQ CONTROLLED RELEASE TAB PO ONE (17:15)
[2017-05-23] MEDS: SILDENAFIL CITRATE 20 MG TAB PO SCH (18:00)
--- NOTE | 2017-05-23 18:22 | RADRPT ---
EXAM DATE/TIME: 05/23/2017 17:24 [facility] COMPARISON: No previous studies available for comparison. INDICATIONS : Neck pain due to fracture. RADIATION DOSE: 26.70 CTDIvol (mGy) MEDICAL HISTORY : Hypertension. Carcinoma, prostate. Multiple myeloma, CVA SURGICAL HISTORY : Aortic valve. ENCOUNTER: Initial ACUITY: 1 day PAIN SCALE: 5/10 LOCATION: Bilateral neck region. TECHNIQUE: Volumetric scanning of the cervical spine was performed. Multiplanar reconstructions in the sagittal, coronal and oblique axial planes were performed. Using automated exposure control and adjustment o f the mA and/or kV according to patient size, radiation dose was kept as low as reasonably achievable to obtain optimal diagnostic quality images. DICOM format image data is available electronically f or review and comparison. FINDINGS: No acute fracture or subluxation is identified. There is fusion across C6-7. Moderate degenerative di sc disease and facet arthropathy. No significant central canal stenosis. Multilevel lateral recess an d foraminal encroachment between C2 and C7. CONCLUSION: 1. No acute fracture identified. Alignment within normal limits. Fusion across C6-7. Osteopenia. Azael Flores MD on May 23, 2017 at 18:16 Board Certified Radiologist. This report was verified electronically.
--- NOTE | 2017-05-23 18:24 | RADRPT ---
EXAM DATE/TIME: 05/23/2017 17:29 [facility] COMPARISON: No previous studies available for comparison. INDICATIONS : Low back pain due to fracture. RADIATION DOSE: 22.90 CTDIvol (mGy) ; Combined studies - Thoracic Spine/Lumbar Spine MEDICAL HISTORY : Hypertension. Carcinoma, prostate. CVA, Multiple myeloma. SURGICAL HISTORY : Aortic valve. ENCOUNTER: Initial ACUITY: 1 day PAIN SCALE: 7/10 LOCATION: Bilateral low back region. TECHNIQUE: Volumetric scanning of the lumbar spine was performed. Multiplanar reconstructions in the sagittal, coronal and oblique axial planes were performed. Using automated exposure control and adjustment of the mA and/or kV according to patient size, radiation dose was kept as low as reasonably achievable t o obtain optimal diagnostic quality images. DICOM format image data is available electronically for review and comparison. FINDINGS: There is a mild superior endplate compression fracture of L1 with minimal retropulsion. No other comp ression fractures identified within the lumbar spine. There is no bony central canal stenosis at L1 a nd L2. At C3-4 there is mild lateral recess stenosis. At L4-5 there is a mild to moderate central canal and lateral recess stenosis. L5-S1 there is no significant canal stenosis. Mild bilateral foraminal stenosis. CONCLUSION: 1. Mild superior plate compression fracture at L1 with minimal retropulsion. No subluxation. 2. There is mild to moderate central canal and lateral recess stenosis at L4-5. Azael Flores MD on May 23, 2017 at 18:20 Board Certified Radiologist. This report was verified electronically.
--- NOTE | 2017-05-23 18:32 | RADRPT ---
EXAM DATE/TIME: 05/23/2017 17:33 [facility] COMPARISON: No previous studies available for comparison. INDICATIONS : Mid back pain due to fracture. RADIATION DOSE: 22.90 CTDIvol (mGy) ; Combined studies - Thoracic Spine/Lumbar Spine MEDICAL HISTORY : Hypertension. Carcinoma, prostate. CVA, Multiple myeloma. SURGICAL HISTORY : Aortic valve. ENCOUNTER: Initial ACUITY: 1 day PAIN SCALE: 5/10 LOCATION: Bilateral mid back region. TECHNIQUE: Volumetric scanning of the thoracic spine was performed. Multiplanar reconstructions in the sagittal , coronal and oblique axial planes were performed. Using automated exposure control and adjustment o f the mA and/or kV according to patient size, radiation dose was kept as low as reasonably achievable to obtain optimal diagnostic quality images. DICOM format image data is available electronically f or review and comparison. FINDINGS: There is moderate degenerative disc disease throughout the thoracic spine. No acute fracture or spond ylolisthesis within the thoracic spine. No bony canal stenosis. Small right pleural effusion.. Mild s uperior endplate compression fracture at L1. CONCLUSION: 1. Moderate degenerative disc disease in the thoracic spine. Mild compression fracture superior endpl ate L1. Azael Flores MD on May 23, 2017 at 18:28 Board Certified Radiologist. This report was verified electronically.
[2017-05-23] MEDS: CEFEPIME INJ 1,000 MG in SODIUM CHLORIDE 0.9% INJ 100 ML IV SCH (21:00)
[2017-05-23] MEDS: AMITRIPTYLINE HCL 50 MG TAB PO SCH (21:32)
[2017-05-23] MEDS: POTASSIUM CHLORIDE 20 MEQ CONTROLLED RELEASE TAB PO SCH (21:33)
--- NOTE | 2017-05-23 23:58 | EKG ---
Date Performed: 05/21/2017 Time Performed: 12:56:50 PTAGE: 87 years EKG: Sinus rhythm WITH FREQUENT VENTRICULAR PREMATURE COMPLEXES RIGHT BUNDLE BRANCH BLOCK LEFT ANTERIOR FASCICULAR BLO CK LEFT VENTRICULAR HYPERTROPHY AND ST-T CHANGE POSSIBLE SEPTAL MYOCARDIAL INFARCTION , PROBABLY OLD ABNORMAL ECG PREVIOUS TRACING : 05/15/2017 12.33 DOCTOR: Bhavna Bacon Interpretating Date/Time 05/23/2017 23:57:05
[2017-05-24] VITALS (11 sets, daily range): BP systolic 90–114; BP diastolic 46–76; PULSE 68–125; RESP 18; TEMP 97.2–98.7; O2SAT 90–98
[2017-05-24] MEDS: POTASSIUM CHLOR 10 MEQ PREMIX 100 ML IV SCH ×2 (01:45→02:08)
[2017-05-24] MEDS ORDERED: HALOPERIDOL LACTATE 5 MG/ML AMP IM ONE (03:15)
[2017-05-24 06:54] LABS: AUTOMATED NEUTROPHIL # 7.6 TH/MM3 (1.8-7.7); BASOPHIL # 0.1 TH/MM3 (0-0.2); BASOPHIL % 0.8 % (0.0-2.0); EOSINOPHIL # 0.2 TH/MM3 (0-0.4); EOSINOPHIL % 1.9 % (0.0-4.0); HEMATOCRIT 31.7 % (39.0-51.0); HEMOGLOBIN 10.1 GM/DL (13.0-17.0); LYMPH % 5.6 % (9.0-44.0); LYMPHOCYTE # 0.5 TH/MM3 (1.0-4.8); MEAN CELL VOLUME 107.1 FL (80.0-100.0); MEAN CORPUSCULAR HEMOGLOBIN 34.1 PG (27.0-34.0); MEAN CORPUSCULAR HGB CONC 31.9 % (32.0-36.0); MEAN PLATELET VOLUME 11.2 FL (7.0-11.0); MONO % 10.2 % (0.0-8.0); NEUT % 81.5 % (16.0-70.0); PLATELET COUNT 131 TH/MM3 (150-450); RED BLOOD COUNT 2.96 MIL/MM3 (4.50-5.90); WHITE BLOOD COUNT 9.4 TH/MM3 (4.0-11.0)
[2017-05-24 07:21] LABS: BICARBONATE 32.7 MEQ/L (21.0-32.0); CREATININE 2.23 MG/DL (0.60-1.30); RANDOM VANCOMYCIN 12.1 COMMENT
[2017-05-24] MEDS: SODIUM CHLORIDE 0.9% FLUSH 10 ML FLUSH IV FLUSH SCH ×2 (07:38→21:00)
[2017-05-24 08:21] LABS: BANDS 1 % (0-6); BASOPHILS 1 % (0-2); LYMPHOCYTES 3 % (9-44); MONOCYTES 4 % (0-8); MYELOCYTES 1 % (0-0); NEUTROPHIL # MANUAL DIFF 8.6 TH/MM3 (1.8-7.7); POLYS (SEG NEUTROPHILS) 90 % (16-70)
[2017-05-24 08:22] LABS: OVALOCYTES 1+ (NORMAL)
[2017-05-24] MEDS ORDERED: POTASSIUM CHLORIDE 20 MEQ CONTROLLED RELEASE TAB PO SCH (09:00)
[2017-05-24] MEDS: SILDENAFIL CITRATE 20 MG TAB PO SCH ×3 (10:10→16:57)
[2017-05-24] MEDS: ASPIRIN 81 MG CHEW TAB CHEW SCH (10:10)
[2017-05-24] MEDS: METOPROLOL SUCCINATE 25 MG EXTENDED RELEASE TAB PO SCH (10:10)
[2017-05-24] MEDS: APIXABAN 2.5 MG TABLET PO SCH ×2 (10:10→21:35)
[2017-05-24] MEDS: valACYclovir HCL 500 MG TAB PO SCH (10:12)
[2017-05-24] MEDS: POTASSIUM CHLORIDE 20 MEQ CONTROLLED RELEASE TAB PO SCH ×2 (10:21→21:34)
[2017-05-24] MEDS ORDERED: LENA10CA PO (11:22)
[2017-05-24] MEDS: LIDOCAINE HCL 5% PATCH T-DERMAL SCH (11:34)
[2017-05-24] MEDS ORDERED: SODIUM CHLORID 0.9% 500 ML INJ 500 ML IV ONE (13:30)
[2017-05-24] MEDS: ALPRAZolam 0.25 MG TAB PO PRN ×2 (13:42→21:35)
[2017-05-24] MEDS ORDERED: VANCOMYCIN 1,000 MG/NS 250 ML IV ONE ×2 (14:00)
[2017-05-24] MEDS: NS + KCL 20 MEQ INJ 1,000 ML IV SCH ×3 (16:53→21:36)
--- NOTE | 2017-05-24 17:15 | HHI.PR ---
Subjective Remarks Mr. Newton remains confused. His daughter is at bedside and has an accurate medication list from his [facility]. She also points out his concentrated urine. Objective Vitals Vital Signs Date Time Temp Pulse Resp B/P (MAP) Pulse Ox O2 Delivery O2 Flow Rate FiO2 05/24/17 16:58 100/46 (64) 05/24/17 15:54 97.2 68 18 90/52 (65) 96 05/24/17 11:17 98.6 87 18 102/49 (66) 98 05/24/17 07:43 97.7 114 18 114/76 (89) 90 05/24/17 06:59 125 05/24/17 04:03 77 05/24/17 03:41 116 05/24/17 00:16 78 05/23/17 21:22 92 20 129/79 (96) 05/23/17 20:06 89 I/O 05/23/17 05/23/17 05/23/17 05/24/17 05/24/17 05/24/17 07:00 15:00 23:00 07:00 15:00 23:00 Intake Total 480 ml 2300 ml 1820 ml 750 ml Output Total 50 ml 1400 ml 800 ml Balance 430 ml 900 ml 1020 ml 750 ml Intake Oral 480 ml 400 ml 120 ml IV Total 1900 ml 1700 ml 750 ml Output Urine Total 50 ml 1400 ml 800 ml Bladder Scan Volume Amount 35 ml # Voids 3 # Bowel Movements 1 2 2 Result Diagram: 05/24/17 0610 05/24/17 0610 Objective Remarks GENERAL: Thin man, confused HEENT: Moist oral mucosa SKIN: Right lower leg cellulitis resolved HEAD: Normocephalic. EYES: No scleral icterus. No injection or drainage. NECK: Supple, trachea midline. No JVD or lymphadenopathy. CARDIOVASCULAR: Regular rate and rhythm without murmurs, gallops, or rubs. RESPIRATORY: Breath sounds equal bilaterally. No accessory muscle use. GASTROINTESTINAL: Abdomen soft, non-tender, nondistended. MUSCULOSKELETAL: No cyanosis, or edema. BACK: Generally tender, not tender to palpation A/P Problem List: (1) Cellulitis of right leg without foot ICD Code: L03.115 - Cellulitis of right lower limb (2) Multiple myeloma ICD Code: C90.00 - Multiple myeloma not having achieved remission (3) Troponin level elevated ICD Code: R74.8 - Abnormal levels of other serum enzymes Assessment and Plan Hypokalemia Two rounds of unexplained dipping this week His daughter says he takes 100 mEq of potassium outpatient, in 40/20/40mg distributions. Will continue IV replacement and add PO if remaining low. Eventual transition to PO. Confusion Continue treatment for dehydration CT Brain was unremarkable Multiple medications where held or stopped, including muscle relaxer and his new SSRI Xanax prn for agitation Right lower leg cellulitis Cellulitis appears resolved, D/C antibiotics, wait a day for PO (due to confusion) Multiple Myeloma Chronic type, no change, but immunocompromised due to condition Elevated troponin Downward trend now, cardiology consulted, patient refused any interventions Depression Zoloft held as extra precaution Low Back Pain with sciatica Tramadol, Lidocaine patch Robaxin held as extra precaution Chronic Renal Insufficiency Improved compared to admission, chronic History CVA, Atrial fibrillation No changes, on telemetry, anticoagulated DVT prophylaxis Continue Eliquis Discharge Planning Low potassium and confusion, discharge held Galdino Berger MD May 24, 2017 17:15
[2017-05-24] MEDS: AMITRIPTYLINE HCL 50 MG TAB PO SCH (21:34)
[2017-05-24] MEDS: traMADol/ACETAMINOPHEN 37.5/325 1 TAB PO PRN (21:35)
[2017-05-25] VITALS: PULSE 100; RESP 18
[2017-05-25] MEDS ORDERED: HALOPERIDOL LACTATE 5 MG/ML AMP IM ONE ×2 (00:15→01:00)
[2017-05-25] MEDS ORDERED: ZIPRASIDONE MESYLATE 20 MG VIAL IM ONE (03:15)
[2017-05-25 05:15] VITALS: PULSE 106; RESP 18
[2017-05-25] MEDS: NS + KCL 20 MEQ INJ 1,000 ML IV SCH (05:52)
[2017-05-25 07:00] VITALS: PULSE 127
[2017-05-25 07:41] VITALS: BP 104/58; PULSE 100; RESP 18; TEMP 97.6; O2SAT 98
[2017-05-25] MEDS: ALPRAZolam 0.25 MG TAB PO PRN (09:31)
[2017-05-25] MEDS: ASPIRIN 81 MG CHEW TAB CHEW SCH (09:31)
[2017-05-25] MEDS: valACYclovir HCL 500 MG TAB PO SCH (09:32)
[2017-05-25] MEDS: traMADol/ACETAMINOPHEN 37.5/325 1 TAB PO PRN (09:32)
[2017-05-25] MEDS: METOPROLOL SUCCINATE 25 MG EXTENDED RELEASE TAB PO SCH (09:32)
[2017-05-25] MEDS: LIDOCAINE HCL 5% PATCH T-DERMAL SCH (09:32)
[2017-05-25] MEDS: APIXABAN 2.5 MG TABLET PO SCH (09:32)
[2017-05-25] MEDS: SILDENAFIL CITRATE 20 MG TAB PO SCH (09:32)
--- NOTE | 2017-05-25 15:16 | HHI.PR ---
Subjective Remarks Pt became unresponsive a few minutes prior to 10am this morning. Staff was called to his bedside for evaluation. His heart stopped about 2 minutes later. He has a DNR code status so no rescue attempts were made. I discussed the sequence of events with his family, his children want an autopsy performed for closure. Objective Vitals Vital Signs Date Time Temp Pulse Resp B/P (MAP) Pulse Ox O2 Delivery O2 Flow Rate FiO2 05/25/17 07:41 97.6 100 18 104/58 (73) 98 05/25/17 07:00 127 05/25/17 05:15 106 18 05/25/17 00:00 100 18 05/24/17 23:04 16 05/24/17 20:32 98.1 68 18 114/58 (76) 97 05/24/17 20:15 78 05/24/17 20:10 98.7 05/24/17 16:58 100/46 (64) 05/24/17 15:54 97.2 68 18 90/52 (65) 96 I/O 05/24/17 05/24/17 05/24/17 05/25/17 05/25/17 05/25/17 07:00 15:00 23:00 07:00 15:00 23:00 Intake Total 1820 ml 2400 ml Output Total 800 ml 250 ml 400 ml Balance 1020 ml 2150 ml -400 ml Intake Oral 120 ml 1650 ml IV Total 1700 ml 750 ml Output Urine Total 800 ml 250 ml 400 ml Bladder Scan Volume Amount 35 ml 35 ml # Bowel Movements 2 2 4 Result Diagram: 05/24/17 0610 05/24/17 0610 Objective Remarks GENERAL: Thin man, cardiopulmonary arrest witnessed, DNR status HEENT: Moist oral mucosa SKIN: Right lower leg cellulitis resolved EYES: No scleral icterus. No injection or drainage. Pupils equal round and sluggish on arrival to bedside. No corneal reflexes following cessation of breathing. CARDIOVASCULAR: Weak heart rhythm heard, then patient subsequently had a cardiac arrest with pulseless electrical activity at 22 bpm RESPIRATORY: Breath sounds equal bilaterally, followed by agonal breathing for 4 -5 gasps, then full respiratory arrest GASTROINTESTINAL: Abdomen soft, non-tender, nondistended. MUSCULOSKELETAL: No cyanosis, or edema. A/P Problem List: (1) Cellulitis of right leg without foot ICD Code: L03.115 - Cellulitis of right lower limb (2) Multiple myeloma ICD Code: C90.00 - Multiple myeloma not having achieved remission (3) Troponin level elevated ICD Code: R74.8 - Abnormal levels of other serum enzymes Assessment and Plan Hypokalemia After his , the lab called to inform us that his potassium level this morning was 6.6 Etiology is unclear, I discussed this with family Considerations include primary NM given elevated troponin on admission (pt refused interventions) Other considerations include cascading events from a fib triggered by hyperkalemia leading to NM The onset of confusion a few days ago has been unexplainable from our work up Family has requested an autopsy Galdino Berger MD May 25, 2017 15:16
[2017-05-26 09:41] LABS: ALB/GLOB RATIO (SPE) 1.62 (1.39-2.23)
[2017-05-28 03:49] LABS: KAPPA/LAMBDA FREE 1.85 (0.26-1.65)
== END 2017-05-25 14:59 | disposition expired | DRG 602 ==
LOC: NEPE 11:35 → NEDA 14:04 → HCIS 17:06 → HCIN 05-17 12:49
PROVIDERS: ADMIT Family Medicine; ATTEND Family Medicine
DX: L03.115 Cellulitis of right lower limb (principal); I21.A1 Myocardial infarction type 2; N17.9 Acute kidney failure, unspecified; E87.2 Acidosis; C90.00 Multiple myeloma not having achieved remission; D89.9 Disorder involving the immune mechanism, unspecified; I50.32 Chronic diastolic (congestive) heart failure; I13.0 Hypertensive heart and chronic kidney disease with heart failure and stage 1 through stage 4 chronic kidney disease, or unspecified chronic kidney disease; I48.2 Chronic atrial fibrillation; I27.20 Pulmonary hypertension, unspecified; E86.0 Dehydration; R06.00 Dyspnea, unspecified; I87.8 Other specified disorders of veins; W19.XXXA Unspecified fall, initial encounter; M62.838 Other muscle spasm; Z86.73 Personal history of transient ischemic attack (TIA), and cerebral infarction without residual deficits; Z95.3 Presence of xenogenic heart valve; Z79.01 Long term (current) use of anticoagulants; I25.10 Atherosclerotic heart disease of native coronary artery without angina pectoris; Z95.5 Presence of coronary angioplasty implant and graft; N18.9 Chronic kidney disease, unspecified; Y92.129 Unspecified place in nursing home as the place of occurrence of the external cause; Z85.46 Personal history of malignant neoplasm of prostate; Z92.3 Personal history of irradiation; M54.40 Lumbago with sciatica, unspecified side; F32.9 Major depressive disorder, single episode, unspecified; E87.6 Hypokalemia; R41.0 Disorientation, unspecified; R33.9 Retention of urine, unspecified; Z66 Do not resuscitate; I46.9 Cardiac arrest, cause unspecified; E87.5 Hyperkalemia
CPT/HCPCS: 70450; 71010; 72072; 72110; 72125; 72128; 72131; 74018; 76937; 80048; 80053; 80202; 81001; 82140; 82272; 82550; 82565; 82784; 83605; 83735; 83880; 83883; 84132; 84165; 84484; 85007; 85025; 85027; 85379; 85610; 85730; 86334; 87040; 93005; 93306; 93971; 96365; J0692; J0696; J1630; J1644; J2543; J3370; J3480; J3486; J7040; J7050